=== PATIENT | female | born 1970 | race Caucasian/White ===

== ENCOUNTER 2017-11-18 11:52 | Emergency (ER) | payer MEDICAID, OTHER ==
[~2017-11-18] VITALS: Ht 162.6 cm; Wt 87.0 kg
[~2017-11-18 11:52] MED LIST: BUTA1CAP PO; LAMI200T PO; PROP40TA3 PO; TYLE325T PO; VENL75XR PO
[2017-11-18 12:08] VITALS: BP 168/74; PULSE 109; RESP 16; TEMP 99.4; O2SAT 97
[2017-11-18] MEDS ORDERED: LAMI200T PO (14:07)
[2017-11-18] MEDS ORDERED: VENL75XR PO (14:07)
--- NOTE | 2017-11-18 14:09 | PD ---
HPI Chief Complaint: Medication Refill Request Time Seen by Provider: 13:17 Travel History International Travel<30 days: No Contact w/Intl Traveler<30days: No Traveled to known affect area: No History of Present Illness HPI 46-year-old female presents to the ED requesting medication refills for Lamictal and venlafaxine. Last Lamictal was taken today. States last venlafaxine was approximately 8 days ago. She endorses increased tearfulness and anxiety. She denies any other somatic complaints. She states that she's been having insurance difficulties and this has prevented her from getting her refills through her primary care provider. PFSH Past Medical History ADHD: Yes Anemia: Yes Arthritis: No Asthma: No Blood Disorders: No Bipolar Disorder: Yes Anxiety: Yes Depression: Yes Heart Rhythm Problems: No Cancer: No Cardiovascular Problems: No (See EMR) High Cholesterol: Yes Chest Pain: No Congestive Heart Failure: No COPD: No Diabetes: No Diminished Hearing: No Endocrine: No Gastrointestinal Disorders: Yes (FOR YEARS) Glaucoma: No Genitourinary: No Hepatitis: No Hiatal Hernia: No Hypertension: No Immune Disorder: No Implanted Vascular Access Dvce: No Kidney Stones: No Musculoskeletal: No Neurologic: No Psychiatric: Yes (pt has been diagnosed with Bipolar affective D/O) Reproductive: Yes (TWO CSECTIONS, MISCARRIAGES) Respiratory: No Immunizations Current: Yes Migraines: Yes Renal Failure: No Sleep Apnea: Yes (DOES NOT USE CPAP ANYMORE) Thyroid Disease: No Tetanus Vaccination: < 5 Years Influenza Vaccination: Yes ?: Not LMP: 10/29/17 Menopausal: Yes : 3 Para: 2 Miscarriage: 1 Past Surgical History Abdominal Surgery: Yes (EXPLORATORY LAP, GASTRIC BYPASS 2004, CHOLECYSTECTOMY) AICD: No Cardiac Surgery: No Section: Yes (X 2) Cholecystectomy: Yes (12/10) Ear Surgery: No Endocrine Surgery: No Eye Surgery: No Genitourinary Surgery: No Joint Replacement: No Oral Surgery: Yes (TONSILLECTOMY) Pacemaker: No Thoracic Surgery: No Tonsillectomy: Yes Other Surgery: Yes ( X2, EXPLORATORY LAP, TONSILLECTOMY) Social History Alcohol Use: Yes (SOCIALLY) Tobacco Use: No Substance Use: No Allergies-Medications (Allergen,Severity, Reaction): Coded Allergies: hydromorphone (Verified Allergy, Severe, STATES "MAKES ME CRAZY", 12/18/17 ) aripiprazole (Verified Allergy, Intermediate, NAUSEA, 11/18/17) oxcarbazepine (Verified Allergy, Intermediate, RASH, 11/18/17) Reported Meds & Prescriptions Reported Meds & Active Scripts Active Lamictal (Lamotrigine) 200 Mg Tab 200 Mg PO BID Effexor XR 24 HR (Venlafaxine HCl) 75 Mg Cap 150 Mg PO DAILY Review of Systems Except as stated in HPI: all other systems reviewed are Neg Physical Exam Narrative GENERAL: Well-nourished, well-developed white female in no acute distress. SKIN: Focused skin assessment warm/dry. HEAD: Normocephalic. EYES: No scleral icterus. No injection or drainage. NECK: Supple, trachea midline. No JVD or lymphadenopathy. CARDIOVASCULAR: Regular rate and rhythm without murmurs, gallops, or rubs. RESPIRATORY: Breath sounds equal bilaterally. No accessory muscle use. GASTROINTESTINAL: Abdomen soft, non-tender, nondistended. MUSCULOSKELETAL: No cyanosis, or edema. BACK: Nontender without obvious deformity. No CVA tenderness. Data Data Last Documented VS Vital Signs Date Time Temp Pulse Resp B/P (MAP) Pulse Ox O2 Delivery O2 Flow Rate FiO2 11/18/17 12:08 99.4 109 16 168/74 (105) 97 Orders Orders Ed Discharge Order (11/18/17 14:09) MDM Medical Decision Making Medical Screen Exam Complete: Yes Emergency Medical Condition: Yes Differential Diagnosis Medication refill versus bipolar disorder versus seizure disorder versus noncompliance versus Narrative Course 46-year-old female presents to the ED requesting medication refills for Lamictal and venlafaxine. Last Lamictal was taken today. States last venlafaxine was approximately 8 days ago. She endorses increased tearfulness and anxiety. She denies any other somatic complaints. She states that she's been having insurance difficulties and this has prevented her from getting her refills through her primary care provider. Vitals reviewed. Physical exam is unremarkable. Cells were provided to the patient. She was counseled that it is unlikely she'll get refills in the emergency room in the future and it is vital that she obtain primary and psychiatric care. She indicated understanding of the instructions at discharge. She is stable and discharged home. Diagnosis Primary Impression: Medication refill Referrals: Primary Care Physician Psychiatrist Additional Instructions: Follow-up with her primary care provider or psychiatrist for medication refills in the future. Return to the ED for any urgent or emergent medical condition. Med/Other Pt SpecificInfo: Prescription(s) given Scripts Lamotrigine (Lamictal) 200 Mg Tab 200 MG PO BID for Control Seizures, #60 TAB 0 Refills Prov: Nahid Wolfe MD 11/18/17 Venlafaxine ER 24 HR (Effexor XR 24 HR) 75 Mg Cap 150 MG PO DAILY, #60 CAP 0 Refills Prov: Nahid Wolfe MD 11/18/17 Disposition: 01 DISCHARGE HOME Condition: Stable Alena Herndon Nov 18, 2017 14:09
== END 2017-11-18 14:15 | disposition home or self-care (01) ==
LOC: PHED 11:52 → PHEFT 14:15
DX: F41.9 Anxiety disorder, unspecified (principal); Z76.0 Encounter for issue of repeat prescription
CPT/HCPCS: 99281

== ENCOUNTER 2017-11-30 03:58 | Inpatient (IN) | payer MEDICAID ==
[~2017-11-30] VITALS: Ht 165.1 cm; Wt 78.0 kg
[2017-11-30] VITALS (10 sets, daily range): BP systolic 116–139; BP diastolic 75–85; PULSE 81–130; RESP 17–27; TEMP 97.2–99.4; O2SAT 96–99
[~2017-11-30 03:58] MED LIST changes: -BUTA1CAP PO; -PROP40TA3 PO; -TYLE325T PO
--- NOTE | 2017-11-30 04:16 | PD ---
HPI Chief Complaint: OD/ Ingestion Time Seen by Provider: 04:01 Travel History International Travel<30 days: No Contact w/Intl Traveler<30days: No Traveled to known affect area: No History of Present Illness HPI 46-year-old female complains of uncontrollable lower extremity shaking, leg cramping and headache. Patient states that she may of taking overdose on her medications including Lamictal and Effexor. There are inconsistencies in the amount of medication she is reportedly overdose. Patient has history of bipolar disorder. Patient initially states to EMS personnel that she took 800 mg of Lamictal. Normally patient supposed to take 200 mg of Lamictal twice a day. Patient also supposed to take Effexor 150 mg daily. Patient then changed the story and said that she took 1000 mg of Lamictal. Patient also admitted to drinking about 20 beers yesterday. Patient complain of cramping and uncontrollable shaking of lower extremity. Patient states that she has aching headache over the head. Patient denies any visual change. Patient denies any neck pain. Patient denies any chest pain or shortness of breath. Patient denies abdominal pain. Patient denies any focal weakness or numbness of extremity. Patient denies any suicidal ideation. Patient has history of iron and B12 deficiency anemia. PFSH Past Medical History ADHD: Yes Anemia: Yes Arthritis: No Asthma: No Blood Disorders: No Bipolar Disorder: Yes Anxiety: Yes Depression: Yes Heart Rhythm Problems: No Cancer: No Cardiovascular Problems: No (See EMR) High Cholesterol: Yes Chest Pain: No Congestive Heart Failure: No COPD: No Diabetes: No Diminished Hearing: No Endocrine: No Gastrointestinal Disorders: Yes (FOR YEARS) Glaucoma: No Genitourinary: No Hepatitis: No Hiatal Hernia: No Hypertension: No Immune Disorder: No Implanted Vascular Access Dvce: No Kidney Stones: No Musculoskeletal: No Neurologic: No Psychiatric: Yes (pt has been diagnosed with Bipolar affective D/O) Reproductive: Yes (TWO CSECTIONS, MISCARRIAGES) Respiratory: No Immunizations Current: Yes Migraines: Yes Renal Failure: No Sleep Apnea: Yes (DOES NOT USE CPAP ANYMORE) Thyroid Disease: No Menopausal: Yes : 3 Para: 2 Miscarriage: 1 Past Surgical History Abdominal Surgery: Yes (EXPLORATORY LAP, GASTRIC BYPASS 2004, CHOLECYSTECTOMY) AICD: No Cardiac Surgery: No Section: Yes (X 2) Cholecystectomy: Yes (12/10) Ear Surgery: No Endocrine Surgery: No Eye Surgery: No Genitourinary Surgery: No Joint Replacement: No Oral Surgery: Yes (TONSILLECTOMY) Pacemaker: No Thoracic Surgery: No Tonsillectomy: Yes Other Surgery: Yes ( X2, EXPLORATORY LAP, TONSILLECTOMY) Social History Alcohol Use: Yes (SOCIALLY) Tobacco Use: No Substance Use: No Allergies-Medications (Allergen,Severity, Reaction): Coded Allergies: hydromorphone (Verified Allergy, Severe, STATES "MAKES ME CRAZY", 11/18/17 ) aripiprazole (Verified Allergy, Intermediate, NAUSEA, 11/18/17) oxcarbazepine (Verified Allergy, Intermediate, RASH, 11/18/17) Reported Meds & Prescriptions Reported Meds & Active Scripts Active Lamictal (Lamotrigine) 200 Mg Tab 200 Mg PO BID Effexor XR 24 HR (Venlafaxine HCl) 75 Mg Cap 150 Mg PO DAILY Review of Systems General / Constitutional: No: Fever Eyes: No: Visual changes HENT: Positive: Headaches Cardiovascular: No: Chest Pain or Discomfort Respiratory: No: Shortness of Breath Gastrointestinal: No: Abdominal Pain Genitourinary: No: Dysuria Musculoskeletal: No: Pain Skin: No Rash Neurologic: No: Weakness Psychiatric: No: Depression Endocrine: No: Polydipsia Hematologic/Lymphatic: No: Easy Bruising Physical Exam Narrative GENERAL: Well-nourished, well-developed patient. SKIN: Focused skin assessment warm/dry. HEAD: Normocephalic. EYES: No scleral icterus. No injection or drainage. Pupils 2 mm equal reactive. NECK: Supple, trachea midline. No JVD or lymphadenopathy. CARDIOVASCULAR: Regular rate and rhythm without murmurs, gallops, or rubs. RESPIRATORY: Breath sounds equal bilaterally. No accessory muscle use. GASTROINTESTINAL: Abdomen soft, non-tender, nondistended. MUSCULOSKELETAL: No cyanosis, or edema. Patient has intermittent tensing of the muscle below extremity and intermittently shaking of the lower extremity. BACK: Nontender without obvious deformity. No CVA tenderness. Neurologic exam: Patient's awake and alert oriented 3. No obvious focal neurological deficit. Data Data Last Documented VS Vital Signs Date Time Temp Pulse Resp B/P (MAP) Pulse Ox O2 Delivery O2 Flow Rate FiO2 11/30/17 04:05 97 Room Air 11/30/17 04:00 98.3 130 20 139/85 (103) Orders Orders Complete Blood Count With Diff (11/30/17 04:04) Comprehensive Metabolic Panel (11/30/17 04:04) Urinalysis - C+S If Indicated (11/30/17 04:04) Electrocardiogram (11/30/17 04:04) Psych Screen (11/30/17 04:04) Drug Screen, Random Urine (11/30/17 04:04) Alcohol (Ethanol) (11/30/17 04:04) Salicylates (Aspirin) (11/30/17 04:04) Tylenol (Acetaminophen) (11/30/17 04:04) Urine Culture (11/30/17 05:12) Labs Laboratory Tests Test 11/30/17 04:15 11/30/17 05:12 White Blood Count 20.3 TH/MM3 Red Blood Count 5.36 MIL/MM3 Hemoglobin 16.7 GM/DL Hematocrit 49.3 % Mean Corpuscular Volume 92.0 FL Mean Corpuscular Hemoglobin 31.2 PG Mean Corpuscular Hemoglobin Concent 33.9 % Red Cell Distribution Width 12.4 % Platelet Count 352 TH/MM3 Mean Platelet Volume 8.4 FL Neutrophils (%) (Auto) 91.6 % Lymphocytes (%) (Auto) 5.9 % Monocytes (%) (Auto) 2.4 % Eosinophils (%) (Auto) 0.0 % Basophils (%) (Auto) 0.1 % Neutrophils # (Auto) 18.6 TH/MM3 Lymphocytes # (Auto) 1.2 TH/MM3 Monocytes # (Auto) 0.5 TH/MM3 Eosinophils # (Auto) 0.0 TH/MM3 Basophils # (Auto) 0.0 TH/MM3 CBC Comment DIFF FINAL Differential Comment Blood Urea Nitrogen 9 MG/DL Creatinine 1.32 MG/DL Random Glucose 140 MG/DL Total Protein 8.1 GM/DL Albumin 4.8 GM/DL Calcium Level 9.7 MG/DL Alkaline Phosphatase 119 U/L Aspartate Amino Transf (AST/SGOT) 20 U/L Alanine Aminotransferase (ALT/SGPT) 29 U/L Total Bilirubin 0.7 MG/DL Sodium Level 139 MEQ/L Potassium Level 4.1 MEQ/L Chloride Level 104 MEQ/L Carbon Dioxide Level 19.3 MEQ/L Anion Gap 16 MEQ/L Estimat Glomerular Filtration Rate 44 ML/MIN Salicylates Level LESS THAN 1.7 MG/DL Acetaminophen Level LESS THAN 2.0 MCG/ML Ethyl Alcohol Level LESS THAN 3 MG/DL Urine Color COLORLESS Urine Turbidity HAZY Urine pH 6.0 Urine Specific [place] 1.003 Urine Protein NEG mg/dL Urine Glucose (UA) NEG mg/dL Urine Ketones NEG mg/dL Urine Occult Blood NEG Urine Nitrite NEG Urine Bilirubin NEG Urine Urobilinogen LESS THAN 2.0 MG/DL Urine Leukocyte Esterase NEG Urine RBC 1 /hpf Urine WBC 1 /hpf Urine Squamous Epithelial Cells <1 /hpf Urine Bacteria OCC /hpf Urine Mucus FEW /lpf Microscopic Urinalysis Comment CATH-CULTURE IND MDM Medical Decision Making Medical Screen Exam Complete: Yes Emergency Medical Condition: Yes Interpretation(s) 5:15 AM. CBC WBC 20.3. Hemoglobin 16.7 hematocrit 49.3. 91 neutrophil. Urmila 19.3. Anion gap 16. Creatinine 1.32. Salicylate and acetaminophen level normal. Alcohol less than 3. 5:52 AM. UA is negative. Differential Diagnosis Differential diagnosis including drug overdose, anxiety depression, substance induced mood disorder, alcohol intoxication. Narrative Course 46-year-old female with possible medication overdose, complains of cramping of her legs and uncontrollable shaking in her legs and headache. Francisco Rapp MD Nov 30, 2017 04:16
[2017-11-30 04:32] LABS: AUTOMATED NEUTROPHIL # 18.6 TH/MM3 (1.8-7.7); BASOPHIL % 0.1 % (0.0-2.0); HEMATOCRIT 49.3 % (35.0-46.0); HEMOGLOBIN 16.7 GM/DL (11.6-15.3); LYMPH % 5.9 % (9.0-44.0); LYMPHOCYTE # 1.2 TH/MM3 (1.0-4.8); MEAN CORPUSCULAR HEMOGLOBIN 31.2 PG (27.0-34.0); MEAN CORPUSCULAR HGB CONC 33.9 % (32.0-36.0); MEAN PLATELET VOLUME 8.4 FL (7.0-11.0); MONO % 2.4 % (0.0-8.0); MONOCYTE # 0.5 TH/MM3 (0-0.9); NEUT % 91.6 % (16.0-70.0); PLATELET COUNT 352 TH/MM3 (150-450); RED BLOOD COUNT 5.36 MIL/MM3 (4.00-5.30); RED CELL DISTRIBUTION WIDTH 12.4 % (11.6-17.2); WHITE BLOOD COUNT 20.3 TH/MM3 (4.0-11.0)
[2017-11-30 04:41] LABS: ALBUMIN 4.8 GM/DL (3.4-5.0); AST (GOT) 20 U/L (15-37); BICARBONATE 19.3 MEQ/L (21.0-32.0); BLOOD UREA NITROGEN 9 MG/DL (7-18); CALCIUM 9.7 MG/DL (8.5-10.1); CHLORIDE 104 MEQ/L (98-107); CREATININE 1.32 MG/DL (0.50-1.00); GLOMERULAR FILTRATION RATE 44 ML/MIN (>89); GLUCOSE,RANDOM 140 MG/DL (74-106); SODIUM (NA) 139 MEQ/L (136-145)
[2017-11-30 04:43] LABS: ACETAMINOPHEN LESS THAN 2.0 MCG/ML (10.0-30.0); ALT (GPT) 29 U/L (10-53)
[2017-11-30 04:45] LABS: ALKALINE PHOSPHATASE 119 U/L (45-117); TOTAL BILIRUBIN ADULT 0.7 MG/DL (0.2-1.0); TOTAL PROTEIN 8.1 GM/DL (6.4-8.2)
[2017-11-30 05:46] LABS: BACTERIA, URINE OCC /hpf; BILIRUBIN, URINE NEG (NEG); BLOOD, URINE NEG (NEG); GLUCOSE,URINE NEG (NEG); KETONE, URINE NEG (NEG); MUCUS URINE FEW /lpf (OCC); NITRITE,URINE NEG (NEG); SQUAMOUS EPITHELIAL CELL URINE <1 /hpf (0-5); URINE COLOR COLORLESS (YELLW/STRAW); URINE LEUKOCYTE ESTERASE NEG (NEG)
[2017-11-30] MEDS ORDERED: SODIUM CHLOR 0.9% 1000 ML INJ 1,000 ML IV ONE ×2 (07:15)
--- NOTE | 2017-11-30 07:22 | PD ---
Physical Exam Date Seen by Provider: Nov 30, 2017 Time Seen by Provider: 07:19 Narrative The patient is a 46-year-old female who presents to the emergency department after a possible overdose. The patient was initially evaluated by the previous physician, Dr. Rapp. Please refer to the initial history, physical , diagnostic evaluation, and treatment modality plan. Data Data Last Documented VS Vital Signs Date Time Temp Pulse Resp B/P (MAP) Pulse Ox O2 Delivery O2 Flow Rate FiO2 11/30/17 07:42 99.0 115 27 127/77 (94) 96 Room Air Orders Orders Complete Blood Count With Diff (11/30/17 04:04) Comprehensive Metabolic Panel (11/30/17 04:04) Urinalysis - C+S If Indicated (11/30/17 04:04) Electrocardiogram (11/30/17 04:04) Psych Screen (11/30/17 04:04) Drug Screen, Random Urine (11/30/17 04:04) Alcohol (Ethanol) (11/30/17 04:04) Salicylates (Aspirin) (11/30/17 04:04) Tylenol (Acetaminophen) (11/30/17 04:04) Urine Culture (11/30/17 05:12) Diet Regular Basic (11/30/17 Breakfast) Sodium Chlor 0.9% 1000 Ml Inj (Ns 1000 M (11/30/17 07:15) Creatine Kinase (Cpk) (11/30/17 07:12) Lactic Acid (11/30/17 07:12) Influenzae A/B Antigen (11/30/17 07:12) Sodium Chlor 0.9% 1000 Ml Inj (Ns 1000 M (11/30/17 07:15) Blood Culture (11/30/17 07:17) Chest, Single Ap (11/30/17 ) Lorazepam Inj (Ativan Inj) (11/30/17 07:30) CKMB (11/30/17 07:40) CKMB% (11/30/17 07:40) Admit Order (Ed Use Only) (11/30/17 08:41) Labs Laboratory Tests Test 11/30/17 04:15 11/30/17 05:12 11/30/17 07:40 White Blood Count 20.3 TH/MM3 Red Blood Count 5.36 MIL/MM3 Hemoglobin 16.7 GM/DL Hematocrit 49.3 % Mean Corpuscular Volume 92.0 FL Mean Corpuscular Hemoglobin 31.2 PG Mean Corpuscular Hemoglobin Concent 33.9 % Red Cell Distribution Width 12.4 % Platelet Count 352 TH/MM3 Mean Platelet Volume 8.4 FL Neutrophils (%) (Auto) 91.6 % Lymphocytes (%) (Auto) 5.9 % Monocytes (%) (Auto) 2.4 % Eosinophils (%) (Auto) 0.0 % Basophils (%) (Auto) 0.1 % Neutrophils # (Auto) 18.6 TH/MM3 Lymphocytes # (Auto) 1.2 TH/MM3 Monocytes # (Auto) 0.5 TH/MM3 Eosinophils # (Auto) 0.0 TH/MM3 Basophils # (Auto) 0.0 TH/MM3 CBC Comment DIFF FINAL Differential Comment Blood Urea Nitrogen 9 MG/DL Creatinine 1.32 MG/DL Random Glucose 140 MG/DL Total Protein 8.1 GM/DL Albumin 4.8 GM/DL Calcium Level 9.7 MG/DL Alkaline Phosphatase 119 U/L Aspartate Amino Transf (AST/SGOT) 20 U/L Alanine Aminotransferase (ALT/SGPT) 29 U/L Total Bilirubin 0.7 MG/DL Sodium Level 139 MEQ/L Potassium Level 4.1 MEQ/L Chloride Level 104 MEQ/L Carbon Dioxide Level 19.3 MEQ/L Anion Gap 16 MEQ/L Estimat Glomerular Filtration Rate 44 ML/MIN Salicylates Level LESS THAN 1.7 MG/DL Acetaminophen Level LESS THAN 2.0 MCG/ML Ethyl Alcohol Level LESS THAN 3 MG/DL Urine Color COLORLESS Urine Turbidity HAZY Urine pH 6.0 Urine Specific [place] 1.003 Urine Protein NEG mg/dL Urine Glucose (UA) NEG mg/dL Urine Ketones NEG mg/dL Urine Occult Blood NEG Urine Nitrite NEG Urine Bilirubin NEG Urine Urobilinogen LESS THAN 2.0 MG/DL Urine Leukocyte Esterase NEG Urine RBC 1 /hpf Urine WBC 1 /hpf Urine Squamous Epithelial Cells <1 /hpf Urine Bacteria OCC /hpf Urine Mucus FEW /lpf Microscopic Urinalysis Comment CATH-CULTURE IND Urine Opiates Screen NEG Urine Barbiturates Screen NEG Urine Amphetamines Screen NEG Urine Benzodiazepines Screen NEG Urine Cocaine Screen NEG Urine Cannabinoids Screen NEG Lactic Acid Level 5.4 mmol/L Total Creatine Kinase 431 U/L Creatine Kinase MB 7.6 NG/ML Creatine Kinase MB % 1.8 % [facility] Medical Record Reviewed: Yes Supervised Visit with JEM: No Interpretation(s) Chest x-ray reveals no acute disease Date/Time Source Procedure Growth Status 11/30/17 07:45 Blood Peripheral Aerobic Blood Culture Pending Received 11/30/17 07:45 Blood Peripheral Anaerobic Blood Culture Pending Received 11/30/17 07:38 Blood Peripheral Aerobic Blood Culture Pending Received 11/30/17 07:38 Blood Peripheral Anaerobic Blood Culture Pending Received 11/30/17 07:43 Nasal Aspirate Influenza Types A,B Antigen (DEJUAN) - Final NEGATIVE FOR FLU A AND B ANTIGEN.... Complete 11/30/17 05:12 Urine Clean Catch Urine Culture Pending Worksheet Laboratory Tests Test 11/30/17 04:15 11/30/17 05:12 11/30/17 07:40 White Blood Count 20.3 TH/MM3 Red Blood Count 5.36 MIL/MM3 Hemoglobin 16.7 GM/DL Hematocrit 49.3 % Mean Corpuscular Volume 92.0 FL Mean Corpuscular Hemoglobin 31.2 PG Mean Corpuscular Hemoglobin Concent 33.9 % Red Cell Distribution Width 12.4 % Platelet Count 352 TH/MM3 Mean Platelet Volume 8.4 FL Neutrophils (%) (Auto) 91.6 % Lymphocytes (%) (Auto) 5.9 % Monocytes (%) (Auto) 2.4 % Eosinophils (%) (Auto) 0.0 % Basophils (%) (Auto) 0.1 % Neutrophils # (Auto) 18.6 TH/MM3 Lymphocytes # (Auto) 1.2 TH/MM3 Monocytes # (Auto) 0.5 TH/MM3 Eosinophils # (Auto) 0.0 TH/MM3 Basophils # (Auto) 0.0 TH/MM3 CBC Comment DIFF FINAL Differential Comment Blood Urea Nitrogen 9 MG/DL Creatinine 1.32 MG/DL Random Glucose 140 MG/DL Total Protein 8.1 GM/DL Albumin 4.8 GM/DL Calcium Level 9.7 MG/DL Alkaline Phosphatase 119 U/L Aspartate Amino Transf (AST/SGOT) 20 U/L Alanine Aminotransferase (ALT/SGPT) 29 U/L Total Bilirubin 0.7 MG/DL Sodium Level 139 MEQ/L Potassium Level 4.1 MEQ/L Chloride Level 104 MEQ/L Carbon Dioxide Level 19.3 MEQ/L Anion Gap 16 MEQ/L Estimat Glomerular Filtration Rate 44 ML/MIN Salicylates Level LESS THAN 1.7 MG/DL Acetaminophen Level LESS THAN 2.0 MCG/ML Ethyl Alcohol Level LESS THAN 3 MG/DL Urine Color COLORLESS Urine Turbidity HAZY Urine pH 6.0 Urine Specific [place] 1.003 Urine Protein NEG mg/dL Urine Glucose (UA) NEG mg/dL Urine Ketones NEG mg/dL Urine Occult Blood NEG Urine Nitrite NEG Urine Bilirubin NEG Urine Urobilinogen LESS THAN 2.0 MG/DL Urine Leukocyte Esterase NEG Urine RBC 1 /hpf Urine WBC 1 /hpf Urine Squamous Epithelial Cells <1 /hpf Urine Bacteria OCC /hpf Urine Mucus FEW /lpf Microscopic Urinalysis Comment CATH-CULTURE IND Urine Opiates Screen NEG Urine Barbiturates Screen NEG Urine Amphetamines Screen NEG Urine Benzodiazepines Screen NEG Urine Cocaine Screen NEG Urine Cannabinoids Screen NEG Lactic Acid Level 5.4 mmol/L Total Creatine Kinase 431 U/L Differential Diagnosis Differential diagnosis includes accidental overdose, intentional overdose, SIRS , sepsis, alcohol withdrawal, pneumonia, influenza, pyelonephritis, dehydration. Narrative Course The patient was initially evaluated by the previous physician, Dr. Rapp. The patient was medically cleared and sent to J pod for psychiatric evaluation. However, was noted the patient was tachycardic, tremulous, and diaphoretic. The patient was moved back to the echo pod. The patient's white count was elevated at 20.3 with an elevated hemoglobin 16.7, most likely secondary to hemoconcentration. Creatinine was elevated, may be secondary to dehydration. The patient does state she drinks alcohol on a daily basis, approximately 12 beers per day, drinks approximately 20 beers yesterday. The patient has been through alcohol withdrawal in the past with similar symptoms. The patient was noted to be tachycardic and diaphoretic without a fever. Lactic acid, blood culture, chest x-ray were obtained. The patient was administered 2 L of IV fluids and Ativan intravenously. Chest x-ray was negative. Influenza screen was negative. The patient's lactic acid was 5.4. CPK was elevated greater than 400. The patient appears to have alcohol withdrawal with tachycardia, tremors, and subsequent dehydration. Therefore, the patient will be admitted to the on-call medical team. Sepsis Criteria SIRS Criteria (2 or more): Heart rate over 90, WBC > 79871, < 4000 or > 10% bands Criteria Outcome: Meets SIRS criteria Physician Communication Physician Communication The on-call medical service was paged for admission. I discussed the patient with Dr. Gibson who agrees with admission to Dr. Samuel. Diagnosis Primary Impression: Alcohol withdrawal Qualified Codes: F10.239 - Alcohol dependence with withdrawal, unspecified Additional Impression: SIRS (systemic inflammatory response syndrome) Admitting Information Admitting Physician Requests: Admit Condition: Stable Edwardo Beck MD Nov 30, 2017 07:22
[2017-11-30] MEDS ORDERED: LORazepam 2 MG/ML VIAL IV PUSH ONE (07:30)
--- NOTE | 2017-11-30 08:12 | RADRPT ---
EXAM DATE/TIME: 11/30/2017 07:50 [facility] COMPARISON: CHEST SINGLE AP, May 29, 2015, 3:35. INDICATIONS : ETOH, weakness. MEDICAL HISTORY : None. SURGICAL HISTORY : Gastro Bypass. ENCOUNTER: Initial ACUITY: 1 day PAIN SCORE: 0/10 LOCATION: Bilateral chest FINDINGS: A single view of the chest demonstrates the lungs to be symmetrically aerated without evidence of mas s, infiltrate or effusion. The cardiomediastinal contours are unremarkable. Osseous structures are intact. CONCLUSION: No acute disease. Isaac Dyson MD on November 30, 2017 at 8:10 Board Certified Radiologist. This report was verified electronically.
--- NOTE | 2017-11-30 08:46 | HHI.HP ---
[facility] Service Family Medicine Primary Care Physician Jacki Lopez MD Admission Diagnosis alcohol withdrawal, SIRS Diagnoses: Chief Complaint: withdrawals International Travel<30 Days: No Contact w/Intl Traveler<30days: No Known Affected Area: No History of Present Illness 46-year-old female with history of bipolar disorder, alcoholism, anemia presents with alcohol withdrawal. Patient states that she was drinking more than normal yesterday, drank 20 beers yesterday. States that she normally only drinks 12 beers a day. Been drinking heavily since January, was sober previously, but has had alcoholism addiction in the past. She then took extra doses of her Lamictal. She normally takes 200 mg daily, but states she forgot and due to her intoxication and she took 3 extra doses. She took her Effexor normally. She states she has had withdrawals from alcohol in the past, but never had seizures with alcohol withdrawals. She is taking the Lamictal for bipolar disorder. Never had a seizure disorder. Presented via ambulance from home. Currently, she states she feels tired and fatigued. Endorses headache. Denies any chest pain, shortness of breath, fever or chills. Denies any suicidal ideations or homicidal ideations. She states she simply forgot that she had already taken her medication. She states she has been suicidal in the past. Has been going through a divorce currently with her . She now lives alone with her dog. Denies any syncopal episodes during the intoxication, but states she fell sleep several times. Endorses nausea, but no vomiting. Took 4 Tylenol yesterday, unsure of dosage. Her psychiatrist is Dr. Neff. (Varun Gibson MD, R2) Review of Systems Constitutional: DENIES: Fever, Chills, Dizziness Eyes: DENIES: Eye pain, Vision loss Ears, nose, mouth, throat: DENIES: Hearing loss Respiratory: DENIES: Cough, Shortness of breath Cardiovascular: DENIES: Chest pain, Palpitations, Syncope Gastrointestinal: COMPLAINS OF: Nausea, DENIES: Abdominal pain, Black stools, Bloody stools, Constipation, Diarrhea, Vomiting Genitourinary: DENIES: Urinary frequency, Hematuria, Dysuria Integumentary: DENIES: Abnormal pigmentation, Rash Neurologic: COMPLAINS OF: Headache, DENIES: Seizures Psychiatric: COMPLAINS OF: Mood changes (Varun Gibson MD, R2) Past Family Social History Past Medical History Depression/Anxiety Bipolar Borderline personality disorder Iron deficiency anemia Past Surgical History Gastric [place] [address] Lam Cholecystectomy 2009 times x2 1997 and 2001 Tonsillectomy Uterine ablation Reported Medications Reported Meds & Active Scripts Active Lamictal (Lamotrigine) 200 Mg Tab 200 Mg PO BID Effexor XR 24 HR (Venlafaxine HCl) 75 Mg Cap 150 Mg PO DAILY (Varun Gibson MD, R2) Allergies: Coded Allergies: hydromorphone (Verified Allergy, Severe, STATES "MAKES ME CRAZY", 11/18/17 ) aripiprazole (Verified Allergy, Intermediate, NAUSEA, 11/18/17) oxcarbazepine (Verified Allergy, Intermediate, RASH, 11/18/17) Active Ordered Medications Active Medications Lorazepam (Ativan Inj) 1 mg ONCE ONCE IV PUSH Last administered on 11/30/17 07:41; Admin Dose 1 MG; Start 11/30/17 at 07:30; Stop 11/30/17 at 07:31; Status DC Sodium Chloride 1,000 ml @ 999 mls/hr BOLUS ONCE IV Last administered on 11/30 07:40; Admin Dose 999 MLS/HR; Start 11/30/17 at 07:15; Stop 11/30/17 at 08:15; Status DC Sodium Chloride 1,000 ml @ 999 mls/hr BOLUS ONCE IV Last administered on 11/30 08:23; Admin Dose 999 MLS/HR; Start 11/30/17 at 07:15; Stop 11/30/17 at 08:15; Status DC Family History Father: Unknown Mother: Living, A. 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 Lying in bed, eyes closed SKIN: No rashes, ecchymoses or lesions. Warm and dry. HEAD: Atraumatic. Normocephalic. No temporal or scalp tenderness. EYES: Pupils equal round and reactive. Extraocular motions intact. No scleral icterus. No injection or drainage. ENT: Throat without erythema, tonsillar hypertrophy or exudate. Uvula midline. Airway patent. NECK: Trachea midline. No JVD or lymphadenopathy. Supple, nontender. CARDIOVASCULAR: Tachycardic, Regular rate. No murmurs, gallops, or rubs. RESPIRATORY: Clear to auscultation. Breath sounds equal bilaterally. No wheezes , rales, or rhonchi. GASTROINTESTINAL: Abdomen soft, non-tender, nondistended. No hepato-splenomegaly , or palpable masses. No guarding. MUSCULOSKELETAL: Extremities without clubbing, cyanosis, or edema. Bilateral knees with contusions. No lacerations. Tender to palpation. NEUROLOGICAL: Awake and alert. Cranial nerves II through XII intact. Motor and sensory grossly within normal limits. Five out of 5 muscle strength in all muscle groups. Normal speech. Laboratory Laboratory Tests Test 11/30/17 04:15 11/30/17 05:12 11/30/17 07:40 White Blood Count 20.3 Red Blood Count 5.36 Hemoglobin 16.7 Hematocrit 49.3 Mean Corpuscular Volume 92.0 Mean Corpuscular Hemoglobin 31.2 Mean Corpuscular Hemoglobin Concent 33.9 Red Cell Distribution Width 12.4 Platelet Count 352 Mean Platelet Volume 8.4 Neutrophils (%) (Auto) 91.6 Lymphocytes (%) (Auto) 5.9 Monocytes (%) (Auto) 2.4 Eosinophils (%) (Auto) 0.0 Basophils (%) (Auto) 0.1 Neutrophils # (Auto) 18.6 Lymphocytes # (Auto) 1.2 Monocytes # (Auto) 0.5 Eosinophils # (Auto) 0.0 Basophils # (Auto) 0.0 CBC Comment DIFF FINAL Differential Comment Blood Urea Nitrogen 9 Creatinine 1.32 Random Glucose 140 Total Protein 8.1 Albumin 4.8 Calcium Level 9.7 Alkaline Phosphatase 119 Aspartate Amino Transf (AST/SGOT) 20 Alanine Aminotransferase (ALT/SGPT) 29 Total Bilirubin 0.7 Sodium Level 139 Potassium Level 4.1 Chloride Level 104 Carbon Dioxide Level 19.3 Anion Gap 16 Estimat Glomerular Filtration Rate 44 Salicylates Level LESS THAN 1.7 Acetaminophen Level LESS THAN 2.0 Ethyl Alcohol Level LESS THAN 3 Urine Color COLORLESS Urine Turbidity HAZY Urine pH 6.0 Urine Specific Thornton 1.003 Urine Protein NEG Urine Glucose (UA) NEG Urine Ketones NEG Urine Occult Blood NEG Urine Nitrite NEG Urine Bilirubin NEG Urine Urobilinogen LESS THAN 2.0 Urine Leukocyte Esterase NEG Urine RBC 1 Urine WBC 1 Urine Squamous Epithelial Cells <1 Urine Bacteria OCC Urine Mucus FEW Microscopic Urinalysis Comment CATH-CULTURE IND Urine Opiates Screen NEG Urine Barbiturates Screen NEG Urine Amphetamines Screen NEG Urine Benzodiazepines Screen NEG Urine Cocaine Screen NEG Urine Cannabinoids Screen NEG Lactic Acid Level 5.4 Total Creatine Kinase 431 Creatine Kinase MB 7.6 Creatine Kinase MB % 1.8 Date/Time Source Procedure Growth Status 11/30/17 07:45 Blood Peripheral Aerobic Blood Culture Pending Received 11/30/17 07:45 Blood Peripheral Anaerobic Blood Culture Pending Received 11/30/17 07:43 Nasal Aspirate Influenza Types A,B Antigen (DEJUAN) - Final NEGATIVE FOR FLU A AND B ANTIGEN.... Complete 11/30/17 05:12 Urine Clean Catch Urine Culture Pending Worksheet (Varun Gibson MD, R2) Result Diagram: 11/30/17 0415 11/30/17 0415 Imaging Last Impressions Knee X-Ray 11/30/17 0000 Signed Impressions: Service Date/Time: Thursday, November 30, 2017 09:55 - CONCLUSION: Unremarkable examination of the right knee. Isaac Dyosn MD Chest X-Ray 11/30/17 0000 Signed Impressions: Service Date/Time: Thursday, November 30, 2017 07:50 - CONCLUSION: No acute disease. Isaac Dyson MD (Varun Gibson MD, R2) Caprini VTE Risk Assessment Caprini VTE Risk Assessment: No/Low Risk (score <= 1) Caprini Risk Assessment Model Point Value = 1 Point Value = 2 Point Value = 3 Point Value = 5 Age 41-60 Minor surgery BMI > 25 kg/m2 Swollen legs Varicose veins or History of unexplained or recurrent spontaneous Oral contraceptives or hormone replacement Sepsis (< 1 month) Serious lung disease, including pneumonia (< 1 month) Abnormal pulmonary function Acute myocardial infarction Congestive heart failure (< 1 month) History of inflammatory bowel disease Medical patient at bed rest Age 61-74 Arthroscopic surgery Major open surgery (> 45 min) Laparoscopic surgery (> 45 min) Malignancy Confined to bed (> 72 hours) Immobilizing plaster cast Central venous access Age >= 75 History of VTE Family history of VTE Factor V Leiden Prothrombin [id number] Lupus anticoagulant Anticardiolipin antibodies Elevated serum homocysteine Heparin-induced thrombocytopenia Other congenital or acquired thrombophilia Stroke (< 1 month) Elective arthroplasty Hip, pelvis, or leg fracture Acute spinal cord injury (< 1 month) Prophylaxis Regimen Total Risk Factor Score Risk Level Prophylaxis Regimen 0-1 Low Early ambulation 2 Moderate Order ONE of the following: *Sequential Compression Device (SCD) *Heparin 5000 units SQ BID 3-4 Higher Order ONE of the following medications: *Heparin 5000 units SQ TID *Enoxaparin/Lovenox 40 mg SQ daily (WT < 150 kg, CrCl > 30 mL/min) *Enoxaparin/Lovenox 30 mg SQ daily (WT < 150 kg, CrCl > 10-29 mL/min) *Enoxaparin/Lovenox 30 mg SQ BID (WT < 150 kg, CrCl > 30 mL/min) AND/OR *Sequential Compression Device (SCD) 5 or more Highest Order ONE of the following medications: *Heparin 5000 units SQ TID (Preferred with Epidurals) *Enoxaparin/Lovenox 40 mg SQ daily (WT < 150 kg, CrCl > 30 mL/min) *Enoxaparin/Lovenox 30 mg SQ daily (WT < 150 kg, CrCl > 10-29 mL/min) *Enoxaparin/Lovenox 30 mg SQ BID (WT < 150 kg, CrCl > 30 mL/min) AND *Sequential Compression Device (SCD) (Varun Gibson MD, R2) Assessment and Plan Assessment and Plan 46 y/o female with history of depression, anxiety, alcoholism presents with alcohol intoxication and overdose of medication Code Status Full Discussed Condition With Drs. Samuel & Yunior (Varun Gibson MD, R2) Problem List: (1) Alcohol withdrawal ICD Codes: F10.239 - Alcohol dependence with withdrawal, unspecified Status: Acute Plan: Endorses drinking 20 beers yesterday. Initially presented to emergency department with tremors. Alcohol level less than 3. Tylenol level less than 2. UDS negative otherwise. Given 1 dose of Ativan in the ED. -CIWA protocol -Consult psychiatry,appreciate recs -Multivitamins, folate, thiamine -1:1 sitter -Seizure precautions -Consult CM-Etoh abuse -Neurochecks (2) SIRS (systemic inflammatory response syndrome) ICD Codes: R65.10 - Systemic inflammatory response syndrome (SIRS) of non- infectious origin without acute organ dysfunction Status: Acute Plan: Presents with WBC of 20.3, patient tachycardic up to 130 and tachypneic to 27. Afebrile. No signs of infection to diagnose with sepsis CXR negative for acute disease UA occasional bacteria Negative for flu Lactic acid 5.4 -Trend CBC -Trend lactic acid -Montor vitals -Blood cultures pending -Trend troponins/EKG (3) Overdose of anticonvulsant ICD Codes: T42.71XA - Poisoning by unspecified antiepileptic and sedative- hypnotic drugs, accidental (unintentional), initial encounter Plan: Pt took 800mg Lamictal yesterday, she states on accident, not suicidal. Poison control notified -Following pt, watch QRS -IV fluids -Trend labs -Trend troponins/EKGs (4) JO-ANN (acute kidney injury) ICD Codes: N17.9 - Acute kidney failure, unspecified Plan: Cr 1.32 on admission. Baseline of 0.42, one year ago Due to dehydration vs rhabdomyolysis -IV fluids -Avoid nephrotoxic agents -Monitor BNPs (5) Elevated CK ICD Codes: R74.8 - Abnormal levels of other serum enzymes Status: Acute Plan: Elevated CK of 431 on admission. Pt states she was only able to crawl around the house yesterday. Denies any syncope or seizure -IV fluid hydration -Trend CK (6) Knee contusion ICD Codes: S80.00XA - Contusion of unspecified knee, initial encounter Plan: Pt with contusions over bilateral knees. Tender to palpation. -Bilateral xrays to rule out fracture (7) Bipolar disorder ICD Codes: F31.9 - Bipolar disorder, unspecified Status: Chronic Plan: Continue home effexor Hold home lamictal for now Psychiatry consulted-appreciate recs (8) FEN Status: Acute Plan: Fluids: IVF @ 180mls/hr Electrolytes: monitor and replace PRN Nutrition: regular diet DVT ppx: lovenox (Varun Gibson MD, R2) Problem List: (1) Alcohol withdrawal ICD Codes: F10.239 - Alcohol dependence with withdrawal, unspecified Status: Acute Plan: Endorses drinking 20 beers yesterday. Initially presented to emergency department with tremors. Alcohol level less than 3. Tylenol level less than 2. UDS negative otherwise. Given 1 dose of Ativan in the ED. -CIWA protocol -Consult psychiatry,appreciate recs -Multivitamins, folate, thiamine -1:1 sitter -Seizure precautions -Consult CM-Etoh abuse -Neurochecks (2) SIRS (systemic inflammatory response syndrome) ICD Codes: R65.10 - Systemic inflammatory response syndrome (SIRS) of non- infectious origin without acute organ dysfunction Status: Acute Plan: Presents with WBC of 20.3, patient tachycardic up to 130 and tachypneic to 27. Afebrile. No signs of infection to diagnose with sepsis CXR negative for acute disease UA occasional bacteria Negative for flu Lactic acid 5.4 -Trend CBC -Trend lactic acid -Montor vitals -Blood cultures pending -Trend troponins/EKG (3) Overdose of anticonvulsant ICD Codes: T42.71XA - Poisoning by unspecified antiepileptic and sedative- hypnotic drugs, accidental (unintentional), initial encounter Plan: Pt took 800mg Lamictal yesterday, she states on accident, not suicidal. Poison control notified -Following pt, watch QRS -IV fluids -Trend labs -Trend troponins/EKGs (4) JO-ANN (acute kidney injury) ICD Codes: N17.9 - Acute kidney failure, unspecified Plan: Cr 1.32 on admission. Baseline of 0.42, one year ago Due to dehydration vs rhabdomyolysis -IV fluids -Avoid nephrotoxic agents -Monitor BNPs (5) Elevated CK ICD Codes: R74.8 - Abnormal levels of other serum enzymes Status: Acute Plan: Elevated CK of 431 on admission. Pt states she was only able to crawl around the house yesterday. Denies any syncope or seizure -IV fluid hydration -Trend CK (6) Knee contusion ICD Codes: S80.00XA - Contusion of unspecified knee, initial encounter Plan: Pt with contusions over bilateral knees. Tender to palpation. -Bilateral xrays to rule out fracture (7) Bipolar disorder ICD Codes: F31.9 - Bipolar disorder, unspecified Status: Chronic Plan: Continue home effexor Hold home lamictal for now Psychiatry consulted-appreciate recs (8) FEN Status: Acute Plan: Fluids: IVF @ 180mls/hr Electrolytes: monitor and replace PRN Nutrition: regular diet DVT ppx: lovenox See the residents documentation for details. I saw and evaluated the patient regarding the pascual portions of this evaluation and agree with the residents findings and plans as written. I have reviewed the patients past medical/surgical and social histories and updated as appropriate. Parts of this note were created using [employer] voice recognition software program. While efforts were made to correct any mistakes made by this software, some mistakes, errors, and omissions may remain in the final note that were not caught when the note was originally created. Plan of care was discussed and agreed upon with the patient as specifically documented in the above note. An opportunity to ask questions with explanation was provided. Patient voiced understanding on all information reviewed and discussed. (Marquez Samuel MD) Physician Certification 2 Midnight Certification Type: Admission for Inpatient Services Order for Inpatient Services The services are ordered in accordance with Medicare regulations or non- Medicare payer requirements, as applicable. In the case of services not specified as inpatient-only, they are appropriately provided as inpatient services in accordance with the 2-midnight benchmark. Estimated LOS (days): 2 days is the estimated time the patient will need to remain in the hospital, assuming treatment plan goals are met and no additional complications. Post-Hospital Plan: Home (Varun Gibson MD, R2) Problem Qualifiers (1) Alcohol withdrawal: Qualified Codes: F10.239 - Alcohol dependence with withdrawal, unspecified (2) Overdose of anticonvulsant: (3) Knee contusion: (4) Bipolar disorder: Qualified Codes: F31.70 - Bipolar disorder, currently in remission, most recent episode unspecified Varun Gibson MD, R2 Nov 30, 2017 08:46 Marquez Samuel MD Dec 01, 2017 12:53
[2017-11-30] MEDS ORDERED: SODIUM CHLORIDE 0.9% FLUSH 10 ML FLUSH IV FLUSH PRN (09:45)
[2017-11-30] MEDS ORDERED: LORazepam 2 MG/ML VIAL IV PUSH PRN ×4 (09:45)
[2017-11-30] MEDS ORDERED: ONDANSETRON HCL 4 MG/2 ML VIAL IV PUSH PRN (09:45)
[2017-11-30] MEDS ORDERED: FLUMAZENIL 0.5 MG/5 ML VIAL IV PUSH PRN (09:45)
[2017-11-30] MEDS ORDERED: cloNIDine HCL 0.1 MG TAB PO PRN (09:45)
[2017-11-30] MEDS ORDERED: LORazepam 1 MG TAB PO PRN (09:45)
[2017-11-30] MEDS ORDERED: LORazepam 2 MG TAB PO PRN (09:45)
[2017-11-30] MEDS: SODIUM CHLOR 0.9% 1000 ML INJ 1,000 ML IV SCH ×3 (10:00→23:43)
[2017-11-30] MEDS: PANTOPRAZOLE SOD 40 MG DELAYED RELEASE TAB PO SCH (10:12)
[2017-11-30] MEDS: MULTIVITAMINS/MINERALS THERAPEUTIC TAB PO SCH (10:12)
[2017-11-30] MEDS: FOLIC ACID 1 MG TAB PO SCH (10:12)
[2017-11-30] MEDS: ENOXAPARIN SODIUM 40 MG/0.4 ML SYRINGE SQ SCH (10:13)
[2017-11-30] MEDS: THIAMINE HCL 100 MG TAB PO SCH (10:13)
--- NOTE | 2017-11-30 10:26 | RADRPT ---
EXAM DATE/TIME: 11/30/2017 10:00 [facility] COMPARISON: No previous studies available for comparison. INDICATIONS : Patient fell today and was unable to get up and was crawling around on knees. Left knee contusions an d pain. MEDICAL HISTORY : None. SURGICAL HISTORY : None. ENCOUNTER: Initial ACUITY: 1 day PAIN SCORE: 5/10 LOCATION: Left Knee FINDINGS: The bony structures are grossly intact. No joint effusion is seen. No definite fracture or joint di slocation is seen. CONCLUSION: No acute disease. Isaac Dyson MD on November 30, 2017 at 10:24 Board Certified Radiologist. This report was verified electronically.
--- NOTE | 2017-11-30 10:28 | RADRPT ---
EXAM DATE/TIME: 11/30/2017 09:55 [facility] COMPARISON: No previous studies available for comparison. INDICATIONS : Patient fell today and was unable to get up and was crawling around on knees. Right knee contusions a nd pain. MEDICAL HISTORY : None. SURGICAL HISTORY : None. ENCOUNTER: Initial ACUITY: 1 day PAIN SCORE: 5/10 LOCATION: Right Knee FINDINGS: The bony structures are grossly intact. No joint effusion is seen. No definite fracture or joint di slocation is seen. CONCLUSION: Unremarkable examination of the right knee. Isaac Dyson MD on November 30, 2017 at 10:25 Board Certified Radiologist. This report was verified electronically.
[2017-11-30 10:53] LABS: LACTIC ACID SEPSIS PROTOCOL 2.8 mmol/L (0.4-2.0)
[2017-11-30] MEDS ORDERED: LIDOCAINE 4% CREAM 5 GM TUBE TOPICAL PRN (11:00)
[2017-11-30 17:44] LABS: HEMOGLOBIN 13.5 GM/DL (11.6-15.3); MEAN CELL VOLUME 93.3 FL (80.0-100.0); MEAN CORPUSCULAR HEMOGLOBIN 32.3 PG (27.0-34.0); MEAN CORPUSCULAR HGB CONC 34.6 % (32.0-36.0); MEAN PLATELET VOLUME 8.1 FL (7.0-11.0); PLATELET COUNT 236 TH/MM3 (150-450); RED BLOOD COUNT 4.18 MIL/MM3 (4.00-5.30); RED CELL DISTRIBUTION WIDTH 12.6 % (11.6-17.2); WHITE BLOOD COUNT 9.8 TH/MM3 (4.0-11.0)
[2017-11-30 20:56] LABS: CREATININE 0.74 MG/DL (0.50-1.00)
[2017-11-30] MEDS: SODIUM CHLORIDE 0.9% FLUSH 10 ML FLUSH IV FLUSH SCH (21:00)
--- NOTE | 2017-11-30 21:55 | EKG ---
Date Performed: 11/30/2017 Time Performed: 15:43:39 PTAGE: 46 years EKG: Sinus rhythm NONSPECIFIC T-WAVE ABNORMALITY BORDERLINE ECG PREVIOUS TRACING : 11/30/2017 13.13 Compared to prior tracing no significant change DOCTOR: Dago Luna Interpretating Date/Time 11/30/2017 21:54:54
--- NOTE | 2017-11-30 22:12 | EKG ---
Date Performed: 11/30/2017 Time Performed: 13:13:47 PTAGE: 46 years EKG: Sinus rhythm NONSPECIFIC T-WAVE ABNORMALITY BORDERLINE ECG PREVIOUS TRACING : 11/30/2017 04.33 Compared to the previous tracing, rate has normalized DOCTOR: Dago Luna Interpretating Date/Time 11/30/2017 22:10:43
[2017-12-01] VITALS (8 sets, daily range): BP systolic 100–128; BP diastolic 55–74; PULSE 67–115; RESP 16–20; TEMP 97.4–98.9; O2SAT 94–100
[2017-12-01] MEDS: SODIUM CHLOR 0.9% 1000 ML INJ 1,000 ML IV SCH ×4 (02:42→22:54)
[2017-12-01] MEDS: MULTIVITAMINS/MINERALS THERAPEUTIC TAB PO SCH (07:56)
[2017-12-01] MEDS: VENLAFAXINE HCL XR 75 MG CAP PO SCH (07:56)
[2017-12-01] MEDS: PANTOPRAZOLE SOD 40 MG DELAYED RELEASE TAB PO SCH (07:57)
[2017-12-01] MEDS: THIAMINE HCL 100 MG TAB PO SCH (07:57)
[2017-12-01] MEDS: FOLIC ACID 1 MG TAB PO SCH (07:57)
[2017-12-01] MEDS: SODIUM CHLORIDE 0.9% FLUSH 10 ML FLUSH IV FLUSH SCH ×2 (08:37→21:00)
[2017-12-01 09:07] LABS: AUTOMATED NEUTROPHIL # 4.5 TH/MM3 (1.8-7.7); BASOPHIL % 0.4 % (0.0-2.0); EOSINOPHIL % 0.7 % (0.0-4.0); HEMATOCRIT 41.5 % (35.0-46.0); HEMOGLOBIN 14.3 GM/DL (11.6-15.3); LYMPH % 30.7 % (9.0-44.0); LYMPHOCYTE # 2.1 TH/MM3 (1.0-4.8); MEAN CELL VOLUME 93.4 FL (80.0-100.0); MEAN CORPUSCULAR HEMOGLOBIN 32.2 PG (27.0-34.0); MEAN CORPUSCULAR HGB CONC 34.5 % (32.0-36.0); MEAN PLATELET VOLUME 7.9 FL (7.0-11.0); MONO % 3.3 % (0.0-8.0); MONOCYTE # 0.2 TH/MM3 (0-0.9); NEUT % 64.9 % (16.0-70.0); PLATELET COUNT 212 TH/MM3 (150-450); RED BLOOD COUNT 4.45 MIL/MM3 (4.00-5.30); RED CELL DISTRIBUTION WIDTH 12.7 % (11.6-17.2); WHITE BLOOD COUNT 6.9 TH/MM3 (4.0-11.0)
--- NOTE | 2017-12-01 09:14 | MB ---
cc: JOSÉ GIBSON MD, DAVID B. MD DATE OF CONSULTATION: 12/01/2017 REQUESTING PHYSICIAN: Dr. Gibson REASON FOR CONSULTATION: "A 46 year-old female with history of alcoholism, presents with alcohol overdose and overdose on psych drugs." HISTORY OF PRESENT ILLNESS Mr. Zimmerman is a 46-year-old female with history of bipolar disorder and borderline personality disorder who presented to the emergency department complaining of lower extremity shaking, leg cramping and headache. She told the ED provider that she had taken perhaps five times her daily dose of Lamictal. She was admitted to the medical floor for further evaluation. Reviewing the electronic medical record, I note the patient was admitted most recently under my care in April of 2016 for a carbamazepine overdose. The patient seen and examined with a sitter at the bedside. Chart reviewed. No Villarreal Act on chart. Recommendations discussed with the patient and nurse. On my examination today, the patient maintains that presenting ingestion was unintentional. She says that she was drinking at a barbecue from around 11:30 a.m. until 03:00 p.m. the day prior to admission and "forgot that I took the pills." She says that she took a dose and inadvertently took another dose, and took another dose, etc. She says that she realized which she had done and called 08-02-1 herself. She denies any suicidal or homicidal ideation, intent or plan at this time and contracts for safety. She reports that things have been going well in her life and denies any low mood, hopelessness, worthlessness or other depressive symptoms. Sleep is chronically poor but appetite is fair. She denies any hypomanic or manic symptoms presently but does say that there was a period about three weeks ago when she did have increased energy secondary to not taking her Effexor because she had run out. She is back on her Effexor now. She denies any audiovisual hallucinations. I can elicit no delusional material. Cluster B personality traits, consistent with her borderline personality disorder diagnosis, are noted. The remainder of the psychiatric ROS is negative. The patient wishes not to be psychiatrically hospitalized at this time but is agreeable to following up on an outpatient basis. With the patient's permission, I have endeavored to obtain collateral from her Dima at [phone] as well as her son Reid at [phone]. I have left generic voice mails for both requesting a call back. [Update: checked with paralegal secretary at noon today, no response to my voicemails.] PAST PSYCHIATRIC HISTORY The patient reports previous diagnoses of borderline personality disorder and bipolar disorder. She had been following with Dr. Pitt on an outpatient basis but apparently has had to stop seeing her secondary to her insurance running out. She plans to follow up at [facility] until she can get her insurance restarted and resume psychiatric and psychotherapeutic contact with Dr. Pitt. She takes Lamictal 200 milligrams daily and Effexor XR 150 milligrams daily. She denies any interval psychiatric admission since she was here under my care in April of last year. She reports three prior suicide attempts, two by overdose and one by cutting. She denies history of non-suicidal self-injurious behavior. She does have a case finisher who is working on getting her insurance restarted. FAMILY HISTORY The patient reports that her mother and sister have similar psychiatric issues to her own. She reports that she has a paternal grandmother who attempted suicide. CHEMICAL DEPENDENCY HISTORY: The patient admits to binge drinking. She has gone to [facility] for detox in the past. She denies any history of DTs or seizures. She denies any other substance use. SOCIAL HISTORY The patient reports that she and her are but plan to continue living together for economic reasons. She has two sons, age 19 and 16. 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 She denies any bahai beliefs. Denies any access to guns or firearms. Denies any legal issues. PAST MEDICAL HISTORY See electronic medical record. MEDICATIONS Includes 1. Effexor. 2. Lamictal as noted above. ALLERGIES Abilify, hydromorphone and oxcarbazepine REVIEW OF SYSTEMS Except as noted in HPI, this is negative. PHYSICAL EXAMINATION VITAL SIGNS: Temperature 97.4, pulse 82, respirations 20, blood pressure 101/55, pulse oximetry 94% on room air. Physical examination completed by primary team. On my examination today, the patient appears to be in no acute physical distress. No motor abnormalities noted. LABORATORY Reviewed: CBC is unremarkable. CMP reveals mild hypokalemia at 3.3. CK is mildly elevated at 551. Urine toxicology is negative. Alcohol level undetectable on initial presentation here on 11/30 at 04:15 a.m. Lamictal level is pending. Urinalysis reviewed. No head imaging on file. MENTAL STATUS EXAM The patient is in hospital attire. She is well-groomed. She is awake, alert and oriented x4. No motor abnormalities noted. No evidence of delirium. No motor abnormalities noted. Speech is within normal limits for rate, tone and volume. Language and fund of knowledge average. Focus and concentration intact. Memory grossly intact on clinical exam. Mood is fairly good, all things considered and affect is full and reactive. Thought process linear. No loosening of associations. No delusional material elicited. Denies audiovisual hallucinations. She does not appear internally stimulated. Denies suicidal or homicidal ideation, intent or plan on direct questioning and contracts for safety. Insight and judgment are fair. ASSESSMENT/PLAN 1. Alcohol abuse with intoxication, intoxication resolved, F10.120 2. Borderline personality disorder, F60.3 3. Bipolar disorder by history, presently stable. This is a 46-year-old female with psychiatric history as detailed above who is presently admitted to the medical unit following a reportedly unintentional overdose on Lamictal. There is no Villarreal Act on the chart per my review. On my evaluation today, the patient insists that the presenting overdose was unintentional and was not suicidal in nature. She says that she accidentally took too much of her medications because she was intoxicated. Her alcohol level was not elevated on presentation here, but given the reported time period in which she was drinking, this is not necessarily unexpected. She presently denies suicidal or homicidal ideation. I can detect no unstable mental illness as defined under the Villarreal Act in this patient at this time. She appears to be attending to her basic needs. Synthesizing this information and based on the available evidence, I cable tv installer that the patient does not presently meet the Villarreal Act criteria. She is declining voluntary psychiatric hospitalization for observation. I have no basis to insist that she remain in the hospital, as she does not meet Villarreal Act criteria. I have recommended that she follow up with outpatient psychiatric provider, and I recommend that the primary team provide a referral to [facility] as she cannot presently see Dr. Pitt. I have also recommended that the patient pursue a chemical dependency evaluation and follow any treatment recommendations, and this can be done at [facility] as well, and I notified the patient of this. I see that the patient has been started back on her Effexor but her Lamictal has been held. I would recommend following Poison Control and general medical recommendations regarding resumption of the Lamictal, but note that if the patient is off of this medication for more than 3-5 days, dose titration would need to be resumed from the lowest dose to minimize the risk of Mosley-Jacky syndrome. I have counseled the patient regarding warning signs for need to return to the psychiatric emergency room as part of a general safety plan. Thank you very much for this consultation. Timothy Snowden DC/EUGENE /7:58 AM /8:39 AM HUONG
[2017-12-01 09:46] LABS: ALBUMIN 3.5 GM/DL (3.4-5.0); ALKALINE PHOSPHATASE 93 U/L (45-117); ALT (GPT) 25 U/L (10-53); AST (GOT) 31 U/L (15-37); BICARBONATE 26.5 MEQ/L (21.0-32.0); BLOOD UREA NITROGEN 4 MG/DL (7-18); CALCIUM 7.9 MG/DL (8.5-10.1); CHLORIDE 108 MEQ/L (98-107); CREATININE 0.63 MG/DL (0.50-1.00); GLOMERULAR FILTRATION RATE 103 ML/MIN (>89); GLUCOSE,RANDOM 91 MG/DL (74-106); SODIUM (NA) 142 MEQ/L (136-145); TOTAL BILIRUBIN ADULT 0.9 MG/DL (0.2-1.0); TOTAL PROTEIN 6.2 GM/DL (6.4-8.2)
[2017-12-01] MEDS: ENOXAPARIN SODIUM 40 MG/0.4 ML SYRINGE SQ SCH (10:15)
--- NOTE | 2017-12-01 12:28 | EKG ---
Date Performed: 12/01/2017 Time Performed: 11:53:55 PTAGE: 46 years EKG: Sinus rhythm NONSPECIFIC T-WAVE ABNORMALITY BORDERLINE ECG PREVIOUS TRACING : 11/30/2017 15.43 Compared to prior tracing no significant change DOCTOR: Dago Luna Interpretating Date/Time 12/01/2017 12:27:32
--- NOTE | 2017-12-01 14:15 | EKG ---
Date Performed: 11/30/2017 Time Performed: 04:33:30 PTAGE: 46 years EKG: SINUS TACHYCARDIA Compared to prior tracing no significant change ABNORMAL RHYTHM ECG PREVIOUS TRACING : 04/10/2016 00.24 DOCTOR: [place] Interpretating Date/Time 12/01/2017 14:14:32
--- NOTE | 2017-12-01 14:41 | HHI.HP ---
[facility] Service Family Medicine Primary Care Physician Jacki Lopez MD Admission Diagnosis alcohol withdrawal, SIRS Diagnoses: (1) Alcohol withdrawal (2) SIRS (systemic inflammatory response syndrome) (3) Overdose of anticonvulsant (4) JO-ANN (acute kidney injury) (5) Elevated CK (6) Knee contusion (7) Bipolar disorder (8) FEN International Travel<30 Days: No Contact w/Intl Traveler<30days: No Known Affected Area: No History of Present Illness 46-year-old female with history of bipolar disorder, alcoholism, anemia presents with alcohol withdrawal. Patient is feeling significantly better today. She is been seen by psychiatry. She was seen and examined at bedside. She denies any suicidal or homicidal ideation. She does admit to drinking large amounts of alcohol. Again reiterates that the Lamictal was taking by accident. Denies any muscular discomfort or pain. Denies any chest pain, shortness of breath, or lightheadedness. Has been having bowel movements and urinating. She has a sitter. Has been eating, with no issues. Review of Systems Constitutional: DENIES: Fatigue, Fever, Weight gain Eyes: DENIES: Blurred vision, Diplopia, Eye inflammation Ears, nose, mouth, throat: DENIES: Hearing loss, Vertigo, Nasal discharge Respiratory: DENIES: Apneas, Cough, Snoring, Wheezing Cardiovascular: DENIES: Chest pain, Palpitations, Syncope, Dyspnea on Exertion Gastrointestinal: DENIES: Abdominal pain, Black stools, Bloody stools, Constipation, Diarrhea Musculoskeletal: DENIES: Joint pain, Muscle aches, Stiffness Integumentary: DENIES: Abnormal pigmentation Psychiatric: COMPLAINS OF: Depression, DENIES: Anxiety, Confusion, Mood changes , Agitation, Suicidal Ideation, Homicidal Ideation, Delusions Past Family Social History Past Medical History Depression/Anxiety Bipolar Borderline personality disorder Iron deficiency anemia Past Surgical History Gastric [place] [address] Lam Cholecystectomy 2009 times x2 1997 and 2001 Tonsillectomy Uterine ablation Allergies: Coded Allergies: hydromorphone (Verified Allergy, Severe, STATES "MAKES ME CRAZY", 11/18/17 ) aripiprazole (Verified Allergy, Intermediate, NAUSEA, 11/18/17) oxcarbazepine (Verified Allergy, Intermediate, RASH, 11/18/17) Family History Father: Unknown Mother: Living, A. 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 SKIN: No rashes, ecchymoses or lesions. Cool and dry. HEAD: Atraumatic. Normocephalic. No temporal or scalp tenderness. EYES: Pupils equal round and reactive. Extraocular motions intact. No scleral icterus. No injection or drainage. ENT: Nose without bleeding, purulent drainage or septal hematoma. Throat without erythema, tonsillar hypertrophy or exudate. Uvula midline. Airway patent. NECK: Trachea midline. No JVD or lymphadenopathy. Supple, nontender, no meningeal signs. CARDIOVASCULAR: Regular rate and rhythm without murmurs, gallops, or rubs. RESPIRATORY: Clear to auscultation. Breath sounds equal bilaterally. No wheezes , rales, or rhonchi. GASTROINTESTINAL: Abdomen soft, non-tender, nondistended. No hepato-splenomegaly , or palpable masses. No guarding. MUSCULOSKELETAL: Extremities without clubbing, cyanosis, or edema. No joint tenderness, effusion, or edema noted. No calf tenderness. Mildly TTP on palpation of bilateral knees, over the anterior knee. NEUROLOGICAL: Awake and alert. Cranial nerves II through XII intact. Motor and sensory grossly within normal limits. Five out of 5 muscle strength in all muscle groups. Normal speech. Laboratory Laboratory Tests Test 11/30/17 14:38 11/30/17 17:31 11/30/17 23:30 12/01/17 08:44 Lactic Acid Level 2.3 White Blood Count 9.8 6.9 Red Blood Count 4.18 4.45 Hemoglobin 13.5 14.3 Hematocrit 39.0 41.5 Mean Corpuscular Volume 93.3 93.4 Mean Corpuscular Hemoglobin 32.3 32.2 Mean Corpuscular Hemoglobin Concent 34.6 34.5 Red Cell Distribution Width 12.6 12.7 Platelet Count 236 212 Mean Platelet Volume 8.1 7.9 Blood Urea Nitrogen 9 4 Creatinine 0.74 0.63 Random Glucose 104 91 Calcium Level 8.0 7.9 Sodium Level 143 142 Potassium Level 3.3 3.6 Chloride Level 111 108 Carbon Dioxide Level 22.0 26.5 Anion Gap 10 8 Estimat Glomerular Filtration Rate 85 103 Total Creatine Kinase 551 629 Creatine Kinase MB 6.7 7.7 Creatine Kinase MB % 1.2 1.2 Troponin I LESS THAN 0.02 LESS THAN 0.02 Neutrophils (%) (Auto) 64.9 Lymphocytes (%) (Auto) 30.7 Monocytes (%) (Auto) 3.3 Eosinophils (%) (Auto) 0.7 Basophils (%) (Auto) 0.4 Neutrophils # (Auto) 4.5 Lymphocytes # (Auto) 2.1 Monocytes # (Auto) 0.2 Eosinophils # (Auto) 0.0 Basophils # (Auto) 0.0 CBC Comment DIFF FINAL Differential Comment Total Protein 6.2 Albumin 3.5 Alkaline Phosphatase 93 Aspartate Amino Transf (AST/SGOT) 31 Alanine Aminotransferase (ALT/SGPT) 25 Total Bilirubin 0.9 Test 12/01/17 11:54 Troponin I LESS THAN 0.02 Date/Time Source Procedure Growth Status 11/30/17 07:45 Blood Peripheral Aerobic Blood Culture - Preliminary NO GROWTH IN 1 DAY Resulted 11/30/17 07:45 Blood Peripheral Anaerobic Blood Culture - Preliminary NO GROWTH IN 1 DAY Resulted 11/30/17 07:43 Nasal Aspirate Influenza Types A,B Antigen (DEJUAN) - Final NEGATIVE FOR FLU A AND B ANTIGEN.... Complete 11/30/17 05:12 Urine Clean Catch Urine Culture - Final 50-100,000 CFU/ML MIXED ANTONI... Complete Result Diagram: 12/01/17 0844 12/01/17 0844 Imaging Last Impressions Knee X-Ray 11/30/17 0000 Signed Impressions: Service Date/Time: Thursday, November 30, 2017 09:55 - CONCLUSION: Unremarkable examination of the right knee. Isaac Dyson MD Chest X-Ray 11/30/17 0000 Signed Impressions: Service Date/Time: Thursday, November 30, 2017 07:50 - CONCLUSION: No acute disease. MD Diana Orozco VTE Risk Assessment Bryantrini VTE Risk Assessment: No/Low Risk (score <= 1) Caprini Risk Assessment Model Point Value = 1 Point Value = 2 Point Value = 3 Point Value = 5 Age 41-60 Minor surgery BMI > 25 kg/m2 Swollen legs Varicose veins or History of unexplained or recurrent spontaneous Oral contraceptives or hormone replacement Sepsis (< 1 month) Serious lung disease, including pneumonia (< 1 month) Abnormal pulmonary function Acute myocardial infarction Congestive heart failure (< 1 month) History of inflammatory bowel disease Medical patient at bed rest Age 61-74 Arthroscopic surgery Major open surgery (> 45 min) Laparoscopic surgery (> 45 min) Malignancy Confined to bed (> 72 hours) Immobilizing plaster cast Central venous access Age >= 75 History of VTE Family history of VTE Factor V Leiden Prothrombin [id number] Lupus anticoagulant Anticardiolipin antibodies Elevated serum homocysteine Heparin-induced thrombocytopenia Other congenital or acquired thrombophilia Stroke (< 1 month) Elective arthroplasty Hip, pelvis, or leg fracture Acute spinal cord injury (< 1 month) Prophylaxis Regimen Total Risk Factor Score Risk Level Prophylaxis Regimen 0-1 Low Early ambulation 2 Moderate Order ONE of the following: *Sequential Compression Device (SCD) *Heparin 5000 units SQ BID 3-4 Higher Order ONE of the following medications: *Heparin 5000 units SQ TID *Enoxaparin/Lovenox 40 mg SQ daily (WT < 150 kg, CrCl > 30 mL/min) *Enoxaparin/Lovenox 30 mg SQ daily (WT < 150 kg, CrCl > 10-29 mL/min) *Enoxaparin/Lovenox 30 mg SQ BID (WT < 150 kg, CrCl > 30 mL/min) AND/OR *Sequential Compression Device (SCD) 5 or more Highest Order ONE of the following medications: *Heparin 5000 units SQ TID (Preferred with Epidurals) *Enoxaparin/Lovenox 40 mg SQ daily (WT < 150 kg, CrCl > 30 mL/min) *Enoxaparin/Lovenox 30 mg SQ daily (WT < 150 kg, CrCl > 10-29 mL/min) *Enoxaparin/Lovenox 30 mg SQ BID (WT < 150 kg, CrCl > 30 mL/min) AND *Sequential Compression Device (SCD) Assessment and Plan Assessment and Plan 46 y/o female with history of depression, anxiety, alcoholism presents with alcohol intoxication and overdose of medication Problem List: (1) Alcohol withdrawal ICD Codes: F10.239 - Alcohol dependence with withdrawal, unspecified Status: Acute Plan: Discussed about the importance of alcohol cessation. Following with the recommendations of poison control Greatly appreciate psychiatric consult Has been doing well on CIWA Reviewed patient's EKG (2) SIRS (systemic inflammatory response syndrome) ICD Codes: R65.10 - Systemic inflammatory response syndrome (SIRS) of non- infectious origin without acute organ dysfunction Status: Acute Plan: Symptoms are improving Have reviewed her labs We'll need to continue monitoring (3) Overdose of anticonvulsant ICD Codes: T42.71XA - Poisoning by unspecified antiepileptic and sedative- hypnotic drugs, accidental (unintentional), initial encounter Plan: Reviewed her EKGs Acquired input from poison control We'll need a discussion on when to restart the medication Appreciate consult of psychiatry (4) JO-ANN (acute kidney injury) ICD Codes: N17.9 - Acute kidney failure, unspecified Plan: Baseline renal function Symptoms seem to be doing better Continue to monitor patient for rhabdo Continue hydration No muscle discomfort at this time (5) Elevated CK ICD Codes: R74.8 - Abnormal levels of other serum enzymes Status: Acute Plan: /Intervention of CK, which I believe is its peak Continue to monitor No obvious symptoms of rhabdo Continue hydration (6) Knee contusion ICD Codes: S80.00XA - Contusion of unspecified knee, initial encounter Plan: Reviewed imaging which did not show any fracture Pain has improved (7) Bipolar disorder ICD Codes: F31.9 - Bipolar disorder, unspecified Status: Chronic Plan: Appreciate the recommendations of psychiatry Were discussed with the patient about medication and poison control about starting Lamictal (8) FEN Status: Acute Plan: Fluids: IVF @ 180mls/hr Electrolytes: monitor and replace PRN Nutrition: regular diet DVT ppx: lovenox Parts of this note were created using [employer] voice recognition software program. While efforts were made to correct any mistakes made by this software, some mistakes, errors, and omissions may remain in the final note that were not caught when the note was originally created. Plan of care was discussed and agreed upon with the patient as specifically documented in the above note. An opportunity to ask questions with explanation was provided. Patient voiced understanding on all information reviewed and discussed. Physician Certification 2 Midnight Certification Type: Admission for Inpatient Services Order for Inpatient Services The services are ordered in accordance with Medicare regulations or non- Medicare payer requirements, as applicable. In the case of services not specified as inpatient-only, they are appropriately provided as inpatient services in accordance with the 2-midnight benchmark. Estimated LOS (days): 3 days is the estimated time the patient will need to remain in the hospital, assuming treatment plan goals are met and no additional complications. Post-Hospital Plan: Home Problem Qualifiers (1) Alcohol withdrawal: Qualified Codes: F10.239 - Alcohol dependence with withdrawal, unspecified (2) Overdose of anticonvulsant: (3) Knee contusion: (4) Bipolar disorder: Qualified Codes: F31.70 - Bipolar disorder, currently in remission, most recent episode unspecified Marquez Samuel MD Dec 01, 2017 14:41
[2017-12-01] MEDS: lamoTRIgine 100 MG TAB PO SCH (21:43)
[2017-12-02 00:40] VITALS: BP 128/69; PULSE 103; RESP 16; TEMP 96.9; O2SAT 99
[2017-12-02 01:48] VITALS: PULSE 76
[2017-12-02 04:00] VITALS: BP 112/73; PULSE 76; RESP 16; TEMP 96.5; O2SAT 97
[2017-12-02] MEDS: SODIUM CHLOR 0.9% 1000 ML INJ 1,000 ML IV SCH (04:29)
[2017-12-02 07:26] LABS: AUTOMATED NEUTROPHIL # 4.4 TH/MM3 (1.8-7.7); BASOPHIL % 0.3 % (0.0-2.0); EOSINOPHIL # 0.1 TH/MM3 (0-0.4); EOSINOPHIL % 1.4 % (0.0-4.0); HEMATOCRIT 42.6 % (35.0-46.0); HEMOGLOBIN 14.5 GM/DL (11.6-15.3); LYMPH % 32.5 % (9.0-44.0); LYMPHOCYTE # 2.3 TH/MM3 (1.0-4.8); MEAN CELL VOLUME 93.2 FL (80.0-100.0); MEAN CORPUSCULAR HEMOGLOBIN 31.7 PG (27.0-34.0); MEAN PLATELET VOLUME 8.2 FL (7.0-11.0); MONO % 4.2 % (0.0-8.0); MONOCYTE # 0.3 TH/MM3 (0-0.9); NEUT % 61.6 % (16.0-70.0); PLATELET COUNT 208 TH/MM3 (150-450); RED BLOOD COUNT 4.58 MIL/MM3 (4.00-5.30); RED CELL DISTRIBUTION WIDTH 12.7 % (11.6-17.2); WHITE BLOOD COUNT 7.1 TH/MM3 (4.0-11.0)
[2017-12-02 07:52] LABS: ALBUMIN 3.3 GM/DL (3.4-5.0); ALT (GPT) 24 U/L (10-53); AST (GOT) 25 U/L (15-37); BICARBONATE 26.9 MEQ/L (21.0-32.0); BLOOD UREA NITROGEN 7 MG/DL (7-18); CALCIUM 8.2 MG/DL (8.5-10.1); CHLORIDE 107 MEQ/L (98-107); CREATININE 0.62 MG/DL (0.50-1.00); GLOMERULAR FILTRATION RATE 105 ML/MIN (>89); GLUCOSE,RANDOM 78 MG/DL (74-106); SODIUM (NA) 141 MEQ/L (136-145)
[2017-12-02 07:55] LABS: ALKALINE PHOSPHATASE 84 U/L (45-117); TOTAL BILIRUBIN ADULT 0.5 MG/DL (0.2-1.0); TOTAL PROTEIN 6.1 GM/DL (6.4-8.2)
[2017-12-02 08:23] VITALS: BP 120/64; PULSE 74; RESP 16; TEMP 97.8; O2SAT 96
[2017-12-02] MEDS: PANTOPRAZOLE SOD 40 MG DELAYED RELEASE TAB PO SCH (08:24)
[2017-12-02] MEDS: SODIUM CHLORIDE 0.9% FLUSH 10 ML FLUSH IV FLUSH SCH (08:24)
[2017-12-02] MEDS: VENLAFAXINE HCL XR 75 MG CAP PO SCH (08:24)
[2017-12-02] MEDS: MULTIVITAMINS/MINERALS THERAPEUTIC TAB PO SCH (08:24)
[2017-12-02] MEDS: THIAMINE HCL 100 MG TAB PO SCH (08:25)
[2017-12-02] MEDS: FOLIC ACID 1 MG TAB PO SCH (08:25)
[2017-12-02] MEDS: ENOXAPARIN SODIUM 40 MG/0.4 ML SYRINGE SQ SCH (08:25)
[2017-12-02] MEDS: lamoTRIgine 100 MG TAB PO SCH (08:25)
--- NOTE | 2017-12-02 09:39 | HHI.DCPOC ---
Discharge Care Plan Diagnosis: (1) Elevated CK (2) Bipolar disorder (3) Alcohol abuse Goals to Promote Your Health * To prevent worsening of your condition and complications * To maintain your health at the optimal level Directions to Meet Your Goals Take your medications as prescribed Follow your dietary instruction Follow activity as directed Keep your appointments as scheduled Take your immunizations and boosters as scheduled If your symptoms worsen call your PCP, if no PCP go to Urgent Care Center or Emergency Room Smoking is Dangerous to Your Health. Avoid second hand smoke Call the 24-hour hour crisis hotline for domestic abuse at Varun Gibson MD, R2 Dec 02, 2017 09:39
--- NOTE | 2017-12-02 09:42 | HHI.FPPN ---
Subjective Remarks Patient seen and examined this morning. No acute events overnight. Reports feeling improved this morning. Denies any lightheadedness/dizziness, chest pain , SOB, abdominal pain, leg pain. Feels ready to go home. (Varun Gibson MD, R2) Objective Vitals Vital Signs Date Time Temp Pulse Resp B/P (MAP) Pulse Ox O2 Delivery O2 Flow Rate FiO2 12/02/17 08:23 97.8 74 16 120/64 (82) 96 12/02/17 04:00 96.5 76 16 112/73 (86) 97 12/02/17 01:48 76 12/02/17 00:40 96.9 103 16 128/69 (88) 99 12/01/17 20:35 97.5 87 16 124/71 (88) 99 12/01/17 16:00 98.9 87 18 105/65 (78) 100 12/01/17 16:00 78 12/01/17 12:01 115 12/01/17 12:00 98.3 100 18 100/62 (75) 96 I/O 12/01/17 12/01/17 12/01/17 12/02/17 12/02/17 12/02/17 07:00 15:00 23:00 07:00 15:00 23:00 Intake Total 400 ml 600 ml 480 ml 360 ml Balance 400 ml 600 ml 480 ml 360 ml Intake Oral 400 ml 600 ml 480 ml 360 ml # Voids 2 3 2 2 # Bowel Movements 0 0 0 (Varun Gibson MD, R2) Result Diagram: 12/02/1720 12/02/17 0620 Objective Remarks GENERAL: NAD, sitting up in bed SKIN: Warm and dry. CARDIOVASCULAR: Regular rate and rhythm. RESPIRATORY: No accessory muscle use. Clear to auscultation. Breath sounds equal bilaterally. GASTROINTESTINAL: Abdomen soft, non-tender, nondistended. BS+ MUSCULOSKELETAL: Extremities without clubbing, cyanosis, or edema. Contusions presents over bilateral knees NEUROLOGICAL: Awake and alert. No obvious cranial nerve deficits. Normal speech. PSYCHIATRIC: Appropriate mood and affect; insight and judgment normal. (Varun Gibson MD, R2) A/P Assessment and Plan 46 y/o female with history of depression, anxiety, alcoholism presents with alcohol intoxication and overdose of medication Discharge Planning discharge today (Varun Gibson MD, R2) Problem List: (1) Alcohol withdrawal ICD Codes: F10.239 - Alcohol dependence with withdrawal, unspecified Status: Acute Plan: Discussed about the importance of alcohol cessation. Greatly appreciate psychiatric consult Has been doing well on CIWA Reviewed patient's EKG (2) Overdose of anticonvulsant ICD Codes: T42.71XA - Poisoning by unspecified antiepileptic and sedative- hypnotic drugs, accidental (unintentional), initial encounter Plan: Reviewed her EKGs Acquired input from poison control Restart Lamictal Appreciate consult of psychiatry -F/u outpatient with medication management (3) JO-ANN (acute kidney injury) ICD Codes: N17.9 - Acute kidney failure, unspecified Plan: Baseline renal function. Continue hydration No muscle discomfort at this time -Outpatient BMP (4) Elevated CK ICD Codes: R74.8 - Abnormal levels of other serum enzymes Status: Acute Plan: CK improvin-->577 Continue to monitor Continue hydration -F/u outpatient CK (5) Knee contusion ICD Codes: S80.00XA - Contusion of unspecified knee, initial encounter Status: Acute Plan: Reviewed imaging which did not show any fracture Pain has improved (6) Bipolar disorder ICD Codes: F31.9 - Bipolar disorder, unspecified Status: Chronic Plan: Appreciate the recommendations of psychiatry -Continue home effexor (7) FEN Status: Acute Plan: Fluids: IVF @ 180mls/hr Electrolytes: monitor and replace PRN Nutrition: regular diet DVT ppx: lovenox (Varun Gibson MD, R2) Problem List: (1) Alcohol withdrawal ICD Codes: F10.239 - Alcohol dependence with withdrawal, unspecified Status: Acute Plan: Discussed about the importance of alcohol cessation. Greatly appreciate psychiatric consult Has been doing well on CIWA Reviewed patient's EKG (2) Overdose of anticonvulsant ICD Codes: T42.71XA - Poisoning by unspecified antiepileptic and sedative- hypnotic drugs, accidental (unintentional), initial encounter Plan: Reviewed her EKGs Acquired input from poison control Restart Lamictal Appreciate consult of psychiatry -F/u outpatient with medication management (3) JO-ANN (acute kidney injury) ICD Codes: N17.9 - Acute kidney failure, unspecified Plan: Baseline renal function. Continue hydration No muscle discomfort at this time -Outpatient BMP (4) Elevated CK ICD Codes: R74.8 - Abnormal levels of other serum enzymes Status: Acute Plan: CK improvin-->577 Continue to monitor Continue hydration -F/u outpatient CK (5) Knee contusion ICD Codes: S80.00XA - Contusion of unspecified knee, initial encounter Status: Acute Plan: Reviewed imaging which did not show any fracture Pain has improved (6) Bipolar disorder ICD Codes: F31.9 - Bipolar disorder, unspecified Status: Chronic Plan: Appreciate the recommendations of psychiatry -Continue home effexor (7) FEN Status: Acute Plan: Fluids: IVF @ 180mls/hr Electrolytes: monitor and replace PRN Nutrition: regular diet DVT ppx: lovenox I have reviewed the patients past medical/surgical and social histories and updated as appropriate. Parts of this note were created using [employer] voice recognition software program. While efforts were made to correct any mistakes made by this software, some mistakes, errors, and omissions may remain in the final note that were not caught when the note was originally created. Plan of care was discussed and agreed upon with the patient as specifically documented in the above note. An opportunity to ask questions with explanation was provided. Medications were reviewed and discussed as appropriate including side effects and risks vs. benefit. Patient voiced understanding on all information reviewed and discussed. (Marquez Samuel MD) Problem Qualifiers (1) Alcohol withdrawal: Qualified Codes: F10.239 - Alcohol dependence with withdrawal, unspecified (2) Overdose of anticonvulsant: (3) Knee contusion: (4) Bipolar disorder: Qualified Codes: F31.70 - Bipolar disorder, currently in remission, most recent episode unspecified Varun Gibson MD, R2 Dec 02, 2017 09:42 Marquez Samuel MD Dec 03, 2017 12:57
--- NOTE | 2017-12-02 09:44 | HHI.DS ---
Discharge Summary Admission Date Nov 30, 2017 at 08:43 Discharge Date: Dec 02, 2017 Admitting Diagnosis alcohol withdrawal, SIRS (1) Alcohol withdrawal Diagnosis: Principal Plan: Discussed about the importance of alcohol cessation. Following with the recommendations of poison control Greatly appreciate psychiatric consult Has been doing well on CIWA Reviewed patient's EKG ICD Codes: F10.239 - Alcohol dependence with withdrawal, unspecified Status: Acute (2) SIRS (systemic inflammatory response syndrome) Diagnosis: Principal Plan: Symptoms are improving Have reviewed her labs We'll need to continue monitoring ICD Codes: R65.10 - Systemic inflammatory response syndrome (SIRS) of non- infectious origin without acute organ dysfunction Status: Acute (3) Overdose of anticonvulsant Diagnosis: Principal Plan: Reviewed her EKGs Acquired input from poison control We'll need a discussion on when to restart the medication Appreciate consult of psychiatry ICD Codes: T42.71XA - Poisoning by unspecified antiepileptic and sedative- hypnotic drugs, accidental (unintentional), initial encounter (4) JO-ANN (acute kidney injury) Diagnosis: Secondary Plan: Baseline renal function Symptoms seem to be doing better Continue to monitor patient for rhabdo Continue hydration No muscle discomfort at this time ICD Codes: N17.9 - Acute kidney failure, unspecified (5) Elevated CK Diagnosis: Secondary Plan: /Intervention of CK, which I believe is its peak Continue to monitor No obvious symptoms of rhabdo Continue hydration ICD Codes: R74.8 - Abnormal levels of other serum enzymes Status: Acute (6) Knee contusion Diagnosis: Secondary Plan: Reviewed imaging which did not show any fracture Pain has improved ICD Codes: S80.00XA - Contusion of unspecified knee, initial encounter Status: Acute (7) Bipolar disorder Diagnosis: Secondary Plan: Appreciate the recommendations of psychiatry Were discussed with the patient about medication and poison control about starting Lamictal ICD Codes: F31.9 - Bipolar disorder, unspecified Status: Chronic (8) FEN Diagnosis: Secondary Plan: Fluids: IVF @ 180mls/hr Electrolytes: monitor and replace PRN Nutrition: regular diet DVT ppx: lovenox Parts of this note were created using [email or web address] voice recognition software program. While efforts were made to correct any mistakes made by this software, some mistakes, errors, and omissions may remain in the final note that were not caught when the note was originally created. Plan of care was discussed and agreed upon with the patient as specifically documented in the above note. An opportunity to ask questions with explanation was provided. Patient voiced understanding on all information reviewed and discussed. Status: Acute Consultants Psychiatry Brief History 46-year-old female with history of bipolar disorder, alcoholism, anemia presents with alcohol withdrawal. Patient is feeling significantly better today. She is been seen by psychiatry. She was seen and examined at bedside. She denies any suicidal or homicidal ideation. She does admit to drinking large amounts of alcohol. Again reiterates that the Lamictal was taking by accident. Denies any muscular discomfort or pain. Denies any chest pain, shortness of breath, or lightheadedness. Has been having bowel movements and urinating. She has a sitter. Has been eating, with no issues. CBC/BMP: 12/02/17 0620 12/02/17 0620 Significant Findings Laboratory Tests Test 11/30/17 04:15 11/30/17 05:12 11/30/17 07:40 11/30/17 10:20 White Blood Count 20.3 TH/MM3 (4.0-11.0) Red Blood Count 5.36 MIL/MM3 (4.00-5.30) Hemoglobin 16.7 GM/DL (11.6-15.3) Hematocrit 49.3 % (35.0-46.0) Neutrophils (%) (Auto) 91.6 % (16.0-70.0) Lymphocytes (%) (Auto) 5.9 % (9.0-44.0) Neutrophils # (Auto) 18.6 TH/MM3 (1.8-7.7) Creatinine 1.32 MG/DL (0.50-1.00) Random Glucose 140 MG/DL (74-106) Alkaline Phosphatase 119 U/L (45-117) Carbon Dioxide Level 19.3 MEQ/L (21.0-32.0) Anion Gap 16 MEQ/L (5-15) Estimat Glomerular Filtration Rate 44 ML/MIN (>89) Salicylates Level LESS THAN 1.7 MG/DL Acetaminophen Level LESS THAN 2.0 MCG/ML Urine Turbidity HAZY (CLEAR) Urine Bacteria OCC /hpf (NONE) Urine Mucus FEW /lpf (OCC) Lactic Acid Level 5.4 mmol/L (0.4-2.0) 2.8 mmol/L (0.4-2.0) Total Creatine Kinase 431 U/L (26-192) Creatine Kinase MB 7.6 NG/ML (0.5-3.6) Test 11/30/17 11:52 11/30/17 14:38 11/30/17 17:31 11/30/17 23:30 Troponin I LESS THAN 0.02 NG/ML LESS THAN 0.02 NG/ML LESS THAN 0.02 NG/ML Lactic Acid Level 2.3 mmol/L (0.4-2.0) Calcium Level 8.0 MG/DL (8.5-10.1) Potassium Level 3.3 MEQ/L (3.5-5.1) Chloride Level 111 MEQ/L (98-107) Estimat Glomerular Filtration Rate 85 ML/MIN (>89) Total Creatine Kinase 551 U/L (26-192) Creatine Kinase MB 6.7 NG/ML (0.5-3.6) Test 12/01/17 08:44 12/01/17 11:54 12/02/17 06:20 Blood Urea Nitrogen 4 MG/DL (7-18) Total Protein 6.2 GM/DL (6.4-8.2) 6.1 GM/DL (6.4-8.2) Calcium Level 7.9 MG/DL (8.5-10.1) 8.2 MG/DL (8.5-10.1) Chloride Level 108 MEQ/L (98-107) Total Creatine Kinase 629 U/L (26-192) 577 U/L (26-192) Creatine Kinase MB 7.7 NG/ML (0.5-3.6) 3.9 NG/ML (0.5-3.6) Troponin I LESS THAN 0.02 NG/ML Albumin 3.3 GM/DL (3.4-5.0) Potassium Level 3.4 MEQ/L (3.5-5.1) Hospital Course 46 y/o female with history of bipolar disorder and alcoholism presents to ED after alcohol intoxication. Pt was admitted and started on CIWA protocol for alcohol withdrawals. Pt found to have elevated CK and JO-ANN. Pt placed on 1.5 maintenance fluids. Psychiatry was consulted and recommended outpatient follow up with continued medications. Poison control was consulted due to overdose of lamictal as well and pt remained stable. Pt's CK and JO-ANN improved and was discharged in stable condition with outpatient follow up of BMP, CK. F/u with PCP and psychiatry. Pt Condition on Discharge: Stable Discharge Disposition: Discharge Home Discharge Instructions DIET: Follow Instructions for: As Tolerated, No Restrictions Activities you can perform: Regular-No Restrictions Follow up Referrals: PCP Follow-up - 2-3 Days New Orders: BASIC METABOLIC PROF - 2-3 Days CREATININE KINASE - 2-3 Days Continued Medications: Lamotrigine (Lamictal) 200 Mg Tab 200 MG PO BID for Control Seizures, #60 TAB 0 Refills Venlafaxine ER 24 HR (Effexor XR 24 HR) 75 Mg Cap 150 MG PO DAILY, #60 CAP 0 Refills Varun Gibson MD, R2 Dec 02, 2017 09:44
== END 2017-12-02 11:57 | disposition home or self-care (01) | DRG 683 ==
LOC: NEPE 03:58 → NEDA 08:43 → N06A 11:26
PROVIDERS: ADMIT Family Medicine; ATTEND Family Medicine
DX: N17.9 Acute kidney failure, unspecified (principal); F10.239 Alcohol dependence with withdrawal, unspecified; R65.10 Systemic inflammatory response syndrome (SIRS) of non-infectious origin without acute organ dysfunction; D51.9 Vitamin B12 deficiency anemia, unspecified; F31.9 Bipolar disorder, unspecified; F31.70 Bipolar disorder, currently in remission, most recent episode unspecified; T42.6X1A Poisoning by other antiepileptic and sedative-hypnotic drugs, accidental (unintentional), initial encounter; T43.211A Poisoning by selective serotonin and norepinephrine reuptake inhibitors, accidental (unintentional), initial encounter; T51.0X1A Toxic effect of ethanol, accidental (unintentional), initial encounter; E86.0 Dehydration; R25.2 Cramp and spasm; G47.30 Sleep apnea, unspecified; R00.0 Tachycardia, unspecified; F60.3 Borderline personality disorder; D50.9 Iron deficiency anemia, unspecified; S80.02XA Contusion of left knee, initial encounter; S80.01XA Contusion of right knee, initial encounter; F41.9 Anxiety disorder, unspecified; Y90.0 Blood alcohol level of less than 20 mg/100 ml; Z81.8 Family history of other mental and behavioral disorders; Z87.891 Personal history of nicotine dependence; Z88.5 Allergy status to narcotic agent; Z91.5 Personal history of self-harm; Z98.84 Bariatric surgery status
CPT/HCPCS: 71010; 73564; 80048; 80053; 80175; 80307; 81001; 82550; 82552; 82948; 83605; 84484; 85025; 85027; 87040; 87086; 87804; 93005; 96374; J1650; J2060; J7030

== ENCOUNTER 2017-12-17 10:10 | Emergency (ER) | payer MEDICAID ==
[~2017-12-17] VITALS: Ht 162.6 cm; Wt 85.6 kg
[2017-12-17 10:12] VITALS: BP 158/93; PULSE 88; RESP 16; TEMP 98.5; O2SAT 97
[2017-12-17] MEDS ORDERED: LAMI200T PO (10:45)
[2017-12-17] MEDS ORDERED: VENL75XR PO (10:45)
--- NOTE | 2017-12-17 10:54 | PD ---
HPI Chief Complaint: Medication Refill Request Time Seen by Provider: 10:35 Travel History International Travel<30 days: No Contact w/Intl Traveler<30days: No Traveled to known affect area: No History of Present Illness HPI This is a 46-year-old female to history of bipolar disorder presents requesting medication refill. The patient has been on Effexor 150 mg daily and Lamictal 200 mg twice a day for several years. She ran out of her medication yesterday. She reports that she is currently "in between" insurances but she is in the process of trying to establish care with psychiatry at [facility]. She was also today given information on [facility] for outpatient follow-up purposes. She reports that her symptoms are well controlled with these medications. She has no acute complaints at this time. PFSH Past Medical History Hx Anticoagulant Therapy: No ADHD: Yes Anemia: Yes Arthritis: No Asthma: No Blood Disorders: No Bipolar Disorder: Yes Anxiety: Yes Depression: Yes Heart Rhythm Problems: No Cancer: No Cardiovascular Problems: No High Cholesterol: Yes Chest Pain: No Congestive Heart Failure: No COPD: No Diabetes: No Diminished Hearing: No Endocrine: No GERD: Yes Glaucoma: No Genitourinary: No Hepatitis: No Hiatal Hernia: No Hypertension: No Immune Disorder: No Implanted Vascular Access Dvce: No Kidney Stones: No Musculoskeletal: No Neurologic: No Psychiatric: Yes (pt has been diagnosed with Bipolar affective D/O) Reproductive: Yes (TWO CSECTIONS, MISCARRIAGES) Respiratory: No Immunizations Current: Yes Migraines: Yes Renal Failure: No Seizures: Yes Sleep Apnea: Yes (DOES NOT USE CPAP ANYMORE) Thyroid Disease: No Influenza Vaccination: Yes ?: Not Menopausal: Yes : 3 Para: 2 Miscarriage: 1 Past Surgical History Abdominal Surgery: Yes (EXPLORATORY LAP, GASTRIC BYPASS 2004, CHOLECYSTECTOMY) AICD: No Cardiac Surgery: No Section: Yes (X 2) Cholecystectomy: Yes (12/10) Ear Surgery: No Endocrine Surgery: No Eye Surgery: No Genitourinary Surgery: No Joint Replacement: No Oral Surgery: Yes (TONSILLECTOMY) Pacemaker: No Thoracic Surgery: No Tonsillectomy: Yes Other Surgery: Yes ( X2, EXPLORATORY LAP, TONSILLECTOMY) Social History Alcohol Use: Yes (SOCIALLY) Tobacco Use: No Substance Use: No Allergies-Medications (Allergen,Severity, Reaction): Coded Allergies: hydromorphone (Verified Allergy, Severe, STATES "MAKES ME CRAZY", 12/17/17) aripiprazole (Verified Allergy, Intermediate, NAUSEA, 12/17/17) oxcarbazepine (Verified Allergy, Intermediate, RASH, 12/17/17) Reported Meds & Prescriptions Reported Meds & Active Scripts Active Effexor XR 24 HR (Venlafaxine HCl) 75 Mg Cap 150 Mg PO DAILY 30 Days Lamictal (Lamotrigine) 200 Mg Tab 200 Mg PO BID Lamictal (Lamotrigine) 200 Mg Tab 200 Mg PO BID Effexor XR 24 HR (Venlafaxine HCl) 75 Mg Cap 150 Mg PO DAILY Review of Systems General / Constitutional: No: Fever, Chills Neurologic: No: Weakness, Dizziness Psychiatric: No: Depression, Suicidal Ideations, Disorder of Thought, Mood Disorder, Substance Abuse Physical Exam Narrative GENERAL: Well-developed well-nourished female in no acute distress SKIN: Warm and dry. HEAD: Atraumatic. Normocephalic. EYES: Pupils equal and round. No scleral icterus. No injection or drainage. ENT: No nasal bleeding or discharge. Mucous membranes pink and moist. NECK: Trachea midline. No JVD. CARDIOVASCULAR: Regular rate and rhythm. No murmur appreciated. RESPIRATORY: No accessory muscle use. Clear to auscultation. Breath sounds equal bilaterally. NEUROLOGICAL: Awake and alert. No obvious cranial nerve deficits. Motor grossly within normal limits. Normal speech. PSYCHIATRIC: Appropriate mood and affect; insight and judgment normal. Data Data Last Documented VS Vital Signs Date Time Temp Pulse Resp B/P (MAP) Pulse Ox O2 Delivery O2 Flow Rate FiO2 12/17/17 10:12 98.5 88 16 158/93 (114) 97 MDM Medical Decision Making Medical Screen Exam Complete: Yes Emergency Medical Condition: Yes Medical Record Reviewed: Yes Differential Diagnosis Medication refill, medication noncompliance, bipolar disorder Narrative Course The patient will be given a short refill of her medications. She understands that it is vital that she establish care and long-term basis with a psychiatrist. Diagnosis Primary Impression: Medication refill [facility]errals: [facility] Pt SpecificInfo: Prescription(s) given Scripts Venlafaxine ER 24 HR (Effexor XR 24 HR) 75 Mg Cap 150 MG PO DAILY for 30 Days, #60 CAP 0 Refills Prov: Nahid Wolfe MD 12/17/17 Lamotrigine (Lamictal) 200 Mg Tab 200 MG PO BID for Control Seizures, #60 TAB 0 Refills Prov: Nahid Wolfe MD 12/17/17 Disposition: 01 DISCHARGE HOME Condition: Stable Claudy Tavares Dec 17, 2017 10:54
== END 2017-12-17 11:03 | disposition home or self-care (01) ==
LOC: PHEFT 10:10
DX: Z76.0 Encounter for issue of repeat prescription (principal); F31.9 Bipolar disorder, unspecified; F90.9 Attention-deficit hyperactivity disorder, unspecified type; E78.00 Pure hypercholesterolemia, unspecified; F41.9 Anxiety disorder, unspecified; K21.9 Gastro-esophageal reflux disease without esophagitis; R56.9 Unspecified convulsions
CPT/HCPCS: 99281